=== PATIENT | male | born 1935 | race Caucasian/White ===

== ENCOUNTER 2020-01-20 07:38 | Outpatient (CLI) | payer MEDICARE, SELFPAY ==
[2020-01-20 07:55] LABS: Add Urine Microscopic? NO; Appearance Urine Clear (Clear); Bilirubin Urine Negative (Negative); Blood Urine Negative (Negative); Color Urine Yellow (Yellow); Glucose Urine UA Negative (Negative); Ketones Urine Negative (Negative); Leukocyte Esterase Ur Negative (Negative); Nitrate Urine Negative (Negative); Protein Urine Negative (Negative); Specific Grav Ur 1.015 (1.010-1.020); Urobilinogen Urine 0.2 mg/dL (0.2-1.0)
[2020-01-20 09:39] LABS: Alanine Aminotransferase 39 U/L (16-63); Albumin Level 3.7 g/dL (3.4-5.0); Alkaline Phosphatase 88 U/L (46-116); Anion Gap 13.3 mmol/L (7-16); Aspartate Amino Transferase 27 U/L (15-37); Bilirubin,Total 0.6 mg/dL (0.00-1.00); Blood Urea Nitrogen 15 mg/dL (7-18); Calcium 8.8 mg/dL (8.5-10.1); Carbon Dioxide 27 mmol/L (21-32); Chloride 107 mmol/L (98-108); Cholesterol 141 mg/dL (0-200); Creatine Kinase 176 U/L (39-308); Estimated Glomerular Filt Rate > 60; Glucose 89 mg/dL (70-99); HDL Direct 62 mg/dL (40-60); LDL Cholesterol Calculated 58 mg/dL (<130); Osmolality Calculated 295 mOsm/kg (285-295); Potassium 4.3 mmol/L (3.5-5.1); Sodium 143 mmol/L (136-145); Total Protein 6.1 g/dL (6.4-8.2); Triglycerides 103 mg/dL (0-150)
== END 2020-01-20 07:39 | disposition home or self-care (01) ==
LOC: CHSLAB 07:40
PROVIDERS: PCP Internal Medicine; Visit Provider Internal Medicine
DX: E78.2 Mixed hyperlipidemia (principal); I10 Essential (primary) hypertension; R73.01 Impaired fasting glucose
CPT/HCPCS: 36415; 80053; 80061; 81003; 82550

== ENCOUNTER 2020-07-28 07:17 | Outpatient (CLI) | payer MEDICARE, SELFPAY ==
[2020-07-28 07:33] LABS: Add Urine Microscopic? NO; Appearance Urine Clear (Clear); Bilirubin Urine Negative (Negative); Blood Urine Negative (Negative); Color Urine Yellow (Yellow); Glucose Urine UA Negative (Negative); Ketones Urine Negative (Negative); Leukocyte Esterase Ur Negative (Negative); Nitrate Urine Negative (Negative); Protein Urine Negative (Negative); Urobilinogen Urine 0.2 mg/dL (0.2-1.0); pH Urine 5.5 (5.0-8.0)
[2020-07-28 08:35] LABS: Alanine Aminotransferase 38 U/L (16-63); Alkaline Phosphatase 83 U/L (46-116); Anion Gap 8 mmol/L (8-16); Aspartate Amino Transferase 22 U/L (15-37); Bilirubin,Total 0.6 mg/dL (0.00-1.00); Blood Urea Nitrogen 19 mg/dL (7-18); Calcium 8.8 mg/dL (8.5-10.1); Carbon Dioxide 28 mmol/L (21-32); Chloride 104 mmol/L (98-108); Cholesterol 159 mg/dL (0-200); Creatine Kinase 234 U/L (39-308); Estimated Glomerular Filt Rate > 60; Glucose 92 mg/dL (70-99); HDL Direct 71 mg/dL (40-60); LDL Cholesterol Calculated 67 mg/dL (<130); Osmolality Calculated 292 mOsm/kg (285-295); Potassium 4.3 mmol/L (3.5-5.1); Sodium 140 mmol/L (136-145); Total Protein 6.7 g/dL (6.4-8.2); Triglycerides 107 mg/dL (0-150)
== END 2020-07-28 07:18 | disposition home or self-care (01) ==
LOC: CHSLAB 07:20
PROVIDERS: PCP Internal Medicine; Visit Provider Internal Medicine
DX: E78.2 Mixed hyperlipidemia (principal); I10 Essential (primary) hypertension
CPT/HCPCS: 36415; 80053; 80061; 81003; 82550

== ENCOUNTER 2020-11-25 13:33 | Outpatient (CLI) | payer MEDICARE, SELFPAY ==
--- NOTE | ~2020-11-25 | XR_ITS ---
EXAMINATION: XR knee RT min 4V DATE: 11/25/2020 14:04 INDICATION: Right knee pain. TECHNIQUE: 4 views of right knee were obtained. COMPARISON: Right knee radiographs 02/07/2018 FINDINGS: There is varus angulation at the knee. No fracture. There is severe osteoarthritis of media l and lateral compartments and moderate osteoarthritis of patellofemoral compartment. There is a smal l knee joint effusion with loose bodies. IMPRESSION: 1. Severe right knee osteoarthritis. 2. Small right knee joint effusion with loose bodies. Reviewed, dictated and finalized at location B.
--- NOTE | ~2020-11-25 | XR_ITS ---
EXAMINATION: XR knee LT min 4V DATE: 11/25/2020 14:04 INDICATION: Left knee pain. TECHNIQUE: 4 views of left knee were obtained. COMPARISON: Left knee radiographs 02/07/2018 FINDINGS: There is varus angulation at the knee. No fracture. There is severe osteoarthritis of media l compartment and moderate osteoarthritis of lateral and patellofemoral compartments. There is a smal l knee joint effusion with loose bodies. IMPRESSION: 1. Severe left knee osteoarthritis. 2. Small knee joint effusion with loose bodies. Reviewed, dictated and finalized at location B.
== END 2020-11-25 13:34 | disposition home or self-care (01) ==
LOC: CHSIMG 13:36
PROVIDERS: PCP Internal Medicine; Visit Provider Internal Medicine
DX: M25.562 Pain in left knee (principal); M25.561 Pain in right knee; M17.0 Bilateral primary osteoarthritis of knee
CPT/HCPCS: 73564

== ENCOUNTER 2020-12-16 13:32 | Outpatient (CLI) | payer MEDICARE, SELFPAY ==
--- NOTE | ~2020-12-16 | US_ITS ---
EXAMINATION: US carotid duplex BI DATE: 12/16/2020 16:09 INDICATION: Bilateral carotid stenosis. TECHNIQUE: Grayscale, color Doppler, and pulsed Doppler images of the cervical carotid arteries were obtained. The degree of vessel stenosis is placed in one of the following categories: normal, <50%, 5 0-69%, >=70% but less than near-occlusion, near-occlusion, or total occlusion. Note that percent sten osis relative to normal distal artery lumen diameter is indirectly measured from velocity measurement s as described by Gunnar, et al. Radiology 2003; [id number]:340-346. COMPARISON: Ultrasound 08/13/2019 FINDINGS: RIGHT: The right common carotid artery (CCA) peak systolic velocity (PSV) is 71 cm/s. The right internal car otid artery (ICA) PSV is 162 cm/s. The right ICA end-diastolic velocity (EDV) is 37 cm/s. The right I CA/CCA PSV ratio is 2.3. Grayscale and color Doppler images yield an estimate of >=50% diameter reduc tion from plaque in the ICA. There is antegrade flow in the right vertebral artery. LEFT: The left CCA PSV is 74 cm/s. The left ICA PSV is 66 cm/s. The left ICA EDV is 20 cm/s. The left ICA/C CA PSV ratio is 0.9. Grayscale and color Doppler images yield an estimate of <50% diameter reduction from plaque in the ICA. There is antegrade flow in the left vertebral artery. IMPRESSION: 1. 50-69% stenosis in the right internal carotid artery. 2. <50% stenosis in the left internal carotid artery. Reviewed, dictated and finalized at location A.
[2020-12-16 13:46] LABS: Basophils Absolute Auto 0.04 K/mm3 (0.00-0.10); Basophils Percent Auto 0.5 % (0.0-1.0); Eosinophils Absolute Auto 0.06 K/mm3 (0.02-0.50); Eosinophils Percent Auto 0.7 % (1.0-6.0); Hematocrit 45.9 % (37.0-46.0); Hemoglobin 15.5 g/dL (12.4-15.3); Immature Granulocyte Absolute 0.02 K/mm3 (0.00-0.00); Immature Granulocyte Percent A 0.2 % (0.0-0.0); Lymphocytes Absolute Auto 1.97 K/mm3 (1.10-4.50); Lymphocytes Percent Auto 22.2 % (18.0-42.0); Mean Corpuscular HGB Conc 33.8 g/dL (32.0-36.0); Mean Corpuscular Hemoglobin 33.3 pg (27.0-31.0); Mean Corpuscular Volume 98.7 fL (78.0-102.0); Mean Platelet Volume 9.6 fl (8.7-11.0); Monocytes Absolute Auto 0.93 K/mm3 (0.10-0.90); Monocytes Percent Auto 10.5 % (2.0-11.0); Neutrophils Absolute Auto 5.9 K/mm3 (1.7-7.2); Neutrophils Percent Auto 65.9 % (50.0-70.0); Platelet Count Result 213 K/mm3 (150-420); Red Blood Count 4.65 M/mm3 (4.70-6.10); Red Cell Distribution Width 12.8 % (11.6-14.4); White Blood Count 8.9 K/mm3 (4.8-10.8)
[2020-12-16 13:51] LABS: Add Urine Microscopic? NO; Appearance Urine Clear (Clear); Bilirubin Urine Negative (Negative); Blood Urine Negative (Negative); Color Urine Yellow (Yellow); Glucose Urine UA Negative (Negative); Ketones Urine Negative (Negative); Leukocyte Esterase Ur Negative LEU/UL (Negative); Nitrate Urine Negative (Negative); Protein Urine Negative (Negative); Specific Grav Ur 1.025 (1.010-1.020); Urobilinogen Urine 0.2 mg/dL (0.2-1.0); pH Urine 5.5 (5.0-8.0)
[2020-12-16 14:36] LABS: Alanine Aminotransferase 31 U/L (16-63); Albumin Level 3.6 g/dL (3.4-5.0); Alkaline Phosphatase 86 U/L (46-116); Anion Gap 11 mmol/L (8-16); Aspartate Amino Transferase 18 U/L (15-37); Bilirubin,Total 0.4 mg/dL (0.00-1.00); Blood Urea Nitrogen 18 mg/dL (7-18); Calcium 8.7 mg/dL (8.5-10.1); Carbon Dioxide 25 mmol/L (21-32); Chloride 106 mmol/L (98-108); Estimated Glomerular Filt Rate 60; Free T3 2.42 pg/mL (2.18-3.98); Free T4 Free Thyroxine 0.87 ng/dL (0.76-1.46); Glucose 135 mg/dL (70-99); Osmolality Calculated 297 mOsm/kg (285-295); Potassium 4.2 mmol/L (3.5-5.1); Sodium 142 mmol/L (136-145); Thyroid Stimulating Hormone 1.31 uIU/mL (0.36-3.74)
== END 2020-12-16 13:33 | disposition home or self-care (01) ==
PROVIDERS: PCP Internal Medicine; Visit Provider Internal Medicine
DX: I65.23 Occlusion and stenosis of bilateral carotid arteries (principal); R53.83 Other fatigue; R35.8 Other polyuria; R42 Dizziness and giddiness
CPT/HCPCS: 36415; 80053; 81003; 84439; 84443; 84481; 85025; 93880

== ENCOUNTER 2020-12-28 10:13 | Outpatient (CLI) | payer MEDICARE, SELFPAY ==
--- NOTE | ~2020-12-28 | US_ITS ---
EXAMINATION: US abdomen limited EXAM DATE: 12/28/2020 11:01 INDICATION: Ascites. Dyspnea, swelling all over body. TECHNIQUE: Multiple grayscale and Doppler images of the abdomen right upper quadrant were obtained (jaqueline y a technologist who performed the scan) and subsequently reviewed. There is no prior study for bettye ty. FINDINGS: Scanning in all 4 quadrants demonstrated no evidence of free abdominal fluid. IMPRESSION: No ascites. Reviewed, dictated and finalized at location B. IMPRESSION: No ascites.
--- NOTE | ~2020-12-28 | XR_ITS ---
XR chest 2V 12/28/2020 10:55 Indication: Dyspnea. Procedure: 2 view chest Comparison: 08/06/2014 Findings: Elevation of the right diaphragm. Right basilar atelectasis. Heart size normal. Left lung c lear. No pleural effusion, focal pneumonia, edema or pneumothorax. Impression: 1: Right basilar elevation with chronic elevation of the right diaphragm. Reviewed, dictated and finalized at location A. Impression: 1: Right basilar elevation with chronic elevation of the right diaphragm.
[2020-12-28 10:29] LABS: Basophils Absolute Auto 0.04 K/mm3 (0.00-0.10); Basophils Percent Auto 0.5 % (0.0-1.0); Eosinophils Absolute Auto 0.12 K/mm3 (0.02-0.50); Eosinophils Percent Auto 1.5 % (1.0-6.0); Hematocrit 47.6 % (37.0-46.0); Immature Granulocyte Absolute 0.03 K/mm3 (0.00-0.00); Immature Granulocyte Percent A 0.4 % (0.0-0.0); Lymphocytes Absolute Auto 1.66 K/mm3 (1.10-4.50); Lymphocytes Percent Auto 20.4 % (18.0-42.0); Mean Corpuscular HGB Conc 33.6 g/dL (32.0-36.0); Mean Corpuscular Hemoglobin 33.1 pg (27.0-31.0); Mean Corpuscular Volume 98.3 fL (78.0-102.0); Mean Platelet Volume 9.4 fl (8.7-11.0); Monocytes Absolute Auto 1.16 K/mm3 (0.10-0.90); Monocytes Percent Auto 14.3 % (2.0-11.0); Neutrophils Absolute Auto 5.1 K/mm3 (1.7-7.2); Neutrophils Percent Auto 62.9 % (50.0-70.0); Platelet Count Result 212 K/mm3 (150-420); Red Blood Count 4.84 M/mm3 (4.70-6.10); Red Cell Distribution Width 12.8 % (11.6-14.4); White Blood Count 8.1 K/mm3 (4.8-10.8)
[2020-12-28 10:48] LABS: Add Urine Microscopic? NO; Appearance Urine Clear (Clear); Bilirubin Urine Negative (Negative); Blood Urine Negative (Negative); Color Urine Yellow (Yellow); Glucose Urine UA Negative (Negative); Ketones Urine Negative (Negative); Leukocyte Esterase Ur Negative (Negative); Nitrate Urine Negative (Negative); Protein Urine Negative (Negative); Specific Grav Ur 1.025 (1.010-1.020); Urobilinogen Urine 0.2 mg/dL (0.2-1.0); pH Urine 5.5 (5.0-8.0)
[2020-12-28 10:51] LABS: Alanine Aminotransferase 25 U/L (16-63); Albumin Level 3.6 g/dL (3.4-5.0); Alkaline Phosphatase 86 U/L (46-116); Anion Gap 8 mmol/L (8-16); Aspartate Amino Transferase 19 U/L (15-37); Bilirubin,Total 0.7 mg/dL (0.00-1.00); Blood Urea Nitrogen 18 mg/dL (7-18); Calcium 8.6 mg/dL (8.5-10.1); Carbon Dioxide 27 mmol/L (21-32); Chloride 106 mmol/L (98-108); Estimated Glomerular Filt Rate > 60; Glucose 89 mg/dL (70-99); NT Pro B Type Natriuretic Pept 236 pg/mL (0-450); Osmolality Calculated 292 mOsm/kg (285-295); Potassium 4.4 mmol/L (3.5-5.1); Sodium 141 mmol/L (136-145); Total Protein 6.4 g/dL (6.4-8.2)
[2020-12-31 10:27] LABS: Prealbumin 24 mg/dL (21-43)
== END 2020-12-28 10:14 | disposition home or self-care (01) ==
PROVIDERS: PCP Internal Medicine; Visit Provider Internal Medicine
DX: R18.8 Other ascites (principal); R06.00 Dyspnea, unspecified
CPT/HCPCS: 36415; 71046; 76705; 80053; 81003; 83880; 84134; 85025

== ENCOUNTER 2021-01-07 07:24 | Outpatient (CLI) | payer MEDICARE, SELFPAY ==
[2021-01-07 08:58] LABS: Anion Gap 10 mmol/L (8-16); Blood Urea Nitrogen 20 mg/dL (7-18); Carbon Dioxide 27 mmol/L (21-32); Chloride 105 mmol/L (98-108); Estimated Glomerular Filt Rate > 60; Glucose 94 mg/dL (70-99); Osmolality Calculated 296 mOsm/kg (285-295); Potassium 4.2 mmol/L (3.5-5.1); Sodium 142 mmol/L (136-145)
== END 2021-01-07 07:25 | disposition home or self-care (01) ==
LOC: CHSLAB 07:25
PROVIDERS: PCP Internal Medicine; Visit Provider Internal Medicine
DX: I10 Essential (primary) hypertension (principal)
CPT/HCPCS: 36415; 80048

== ENCOUNTER 2021-02-01 07:34 | Outpatient (CLI) | payer MEDICARE, SELFPAY ==
[2021-02-01 09:02] LABS: Anion Gap 12 mmol/L (8-16); Blood Urea Nitrogen 27 mg/dL (7-18); Calcium 8.4 mg/dL (8.5-10.1); Carbon Dioxide 26 mmol/L (21-32); Chloride 109 mmol/L (98-108); Estimated Glomerular Filt Rate 56; Glucose 97 mg/dL (70-99); Osmolality Calculated 309 mOsm/kg (285-295); Potassium 4.6 mmol/L (3.5-5.1); Sodium 147 mmol/L (136-145)
== END 2021-02-01 07:35 | disposition home or self-care (01) ==
LOC: CHSLAB 07:36
PROVIDERS: PCP Internal Medicine; Visit Provider Internal Medicine
DX: I10 Essential (primary) hypertension (principal)
CPT/HCPCS: 36415; 80048

== ENCOUNTER 2021-07-16 11:18 | Outpatient (CLI) | payer MEDICARE, SELFPAY ==
[2021-07-16 12:23] LABS: Influenza Control Valid (Valid); SARS-CoV-2 Ag Negative (Negative)
== END 2021-07-16 11:19 | disposition home or self-care (01) ==
LOC: CHSLAB 11:20
PROVIDERS: PCP Internal Medicine; Visit Provider Internal Medicine
DX: J06.9 Acute upper respiratory infection, unspecified (principal); Z20.822 Contact with and (suspected) exposure to COVID-19
CPT/HCPCS: 87081; 87426; 87804; 87880; C9803

== ENCOUNTER 2021-08-10 07:52 | Outpatient (CLI) | payer MEDICARE, SELFPAY ==
[2021-08-10 08:12] LABS: Basophils Absolute Auto 0.01 K/mm3 (0.00-0.10); Basophils Percent Auto 0.2 % (0.0-1.0); Eosinophils Absolute Auto 0.08 K/mm3 (0.02-0.50); Eosinophils Percent Auto 1.2 % (1.0-6.0); Hematocrit 50.4 % (37.0-46.0); Hemoglobin 16.4 g/dL (12.4-15.3); Immature Granulocyte Absolute 0.04 K/mm3 (0.00-0.00); Immature Granulocyte Percent A 0.6 % (0.0-0.0); Lymphocytes Absolute Auto 1.72 K/mm3 (1.10-4.50); Lymphocytes Percent Auto 26.2 % (18.0-42.0); Mean Corpuscular HGB Conc 32.5 g/dL (32.0-36.0); Mean Corpuscular Hemoglobin 33.6 pg (27.0-31.0); Mean Corpuscular Volume 103.3 fL (78.0-102.0); Mean Platelet Volume 9.3 fl (8.7-11.0); Monocytes Absolute Auto 0.77 K/mm3 (0.10-0.90); Monocytes Percent Auto 11.7 % (2.0-11.0); Neutrophils Percent Auto 60.1 % (50.0-70.0); Platelet Count Result 169 K/mm3 (150-420); Red Blood Count 4.88 M/mm3 (4.70-6.10); Red Cell Distribution Width 13.1 % (11.6-14.4); White Blood Count 6.6 K/mm3 (4.8-10.8)
[2021-08-10 08:13] LABS: Add Urine Microscopic? NO; Appearance Urine Clear (Clear); Bilirubin Urine Negative (Negative); Blood Urine Negative (Negative); Color Urine Yellow (Yellow); Glucose Urine UA Negative (Negative); Ketones Urine Negative (Negative); Leukocyte Esterase Ur Negative (Negative); Nitrate Urine Negative (Negative); Protein Urine Negative (Negative); Specific Grav Ur 1.025 (1.010-1.020); Urobilinogen Urine 0.2 mg/dL (0.2-1.0)
[2021-08-10 09:18] LABS: Alanine Aminotransferase 82 U/L (16-63); Albumin Level 3.5 g/dL (3.4-5.0); Alkaline Phosphatase 92 U/L (46-116); Anion Gap 9 mmol/L (8-16); Aspartate Amino Transferase 38 U/L (15-37); Bilirubin,Total 0.4 mg/dL (0.00-1.00); Blood Urea Nitrogen 19 mg/dL (7-18); Calcium 8.4 mg/dL (8.5-10.1); Carbon Dioxide 29 mmol/L (21-32); Chloride 104 mmol/L (98-108); Cholesterol 156 mg/dL (0-200); Creatine Kinase 141 U/L (39-308); Estimated Glomerular Filt Rate > 60; Free T4 Free Thyroxine 0.96 ng/dL (0.76-1.46); Glucose 89 mg/dL (70-99); HDL Direct 57 mg/dL (40-60); LDL Cholesterol Calculated 72 mg/dL (<130); Osmolality Calculated 295 mOsm/kg (285-295); Potassium 4.3 mmol/L (3.5-5.1); Sodium 142 mmol/L (136-145); Total Protein 6.3 g/dL (6.4-8.2); Triglycerides 135 mg/dL (0-150)
== END 2021-08-10 07:53 | disposition home or self-care (01) ==
LOC: CHSLAB 07:54
PROVIDERS: PCP Internal Medicine; Visit Provider Internal Medicine
DX: E78.2 Mixed hyperlipidemia (principal); I10 Essential (primary) hypertension; M15.0 Primary generalized (osteo)arthritis; R53.82 Chronic fatigue, unspecified; I63.233 Cerebral infarction due to unspecified occlusion or stenosis of bilateral carotid arteries
CPT/HCPCS: 36415; 80053; 80061; 81003; 82550; 84439; 84443; 84481; 85025

== ENCOUNTER 2021-08-31 08:13 | Outpatient (CLI) | payer MEDICARE, SELFPAY ==
[2021-08-31 09:34] LABS: Alanine Aminotransferase 44 U/L (16-63); Albumin Level 3.7 g/dL (3.4-5.0); Alkaline Phosphatase 75 U/L (46-116); Anion Gap 9 mmol/L (8-16); Aspartate Amino Transferase 27 U/L (15-37); Bilirubin,Total 0.8 mg/dL (0.00-1.00); Blood Urea Nitrogen 19 mg/dL (7-18); Calcium 8.8 mg/dL (8.5-10.1); Carbon Dioxide 29 mmol/L (21-32); Chloride 104 mmol/L (98-108); Estimated Glomerular Filt Rate > 60; Glucose 92 mg/dL (70-99); Osmolality Calculated 296 mOsm/kg (285-295); Potassium 4.6 mmol/L (3.5-5.1); Sodium 142 mmol/L (136-145); Total Protein 6.5 g/dL (6.4-8.2)
== END 2021-08-31 08:14 | disposition home or self-care (01) ==
LOC: CHSLAB 08:15
PROVIDERS: PCP Internal Medicine; Visit Provider Internal Medicine
DX: R94.5 Abnormal results of liver function studies (principal)
CPT/HCPCS: 36415; 80053

== ENCOUNTER 2022-01-26 08:06 | Outpatient (CLI) | payer MEDICARE, SELFPAY ==
[2022-01-26 08:29] LABS: Basophils Absolute Auto 0.02 K/mm3 (0.00-0.10); Basophils Percent Auto 0.3 % (0.0-1.0); Eosinophils Absolute Auto 0.15 K/mm3 (0.02-0.50); Eosinophils Percent Auto 2.1 % (1.0-6.0); Hematocrit 47.3 % (37.0-46.0); Hemoglobin 15.8 g/dL (12.4-15.3); Immature Granulocyte Absolute 0.02 K/mm3 (0.00-0.00); Immature Granulocyte Percent A 0.3 % (0.0-0.0); Lymphocytes Absolute Auto 1.77 K/mm3 (1.10-4.50); Mean Corpuscular HGB Conc 33.4 g/dL (32.0-36.0); Mean Corpuscular Hemoglobin 33.5 pg (27.0-31.0); Mean Corpuscular Volume 100.4 fL (78.0-102.0); Mean Platelet Volume 9.4 fl (8.7-11.0); Monocytes Absolute Auto 0.86 K/mm3 (0.10-0.90); Monocytes Percent Auto 12.2 % (2.0-11.0); Neutrophils Absolute Auto 4.3 K/mm3 (1.7-7.2); Neutrophils Percent Auto 60.1 % (50.0-70.0); Platelet Count Result 224 K/mm3 (150-420); Red Blood Count 4.71 M/mm3 (4.70-6.10); Red Cell Distribution Width 12.9 % (11.6-14.4); White Blood Count 7.1 K/mm3 (4.8-10.8)
[2022-01-26 08:45] LABS: Add Urine Microscopic? NO; Appearance Urine Clear (Clear); Bilirubin Urine Negative (Negative); Blood Urine Negative (Negative); Color Urine Yellow (Yellow); Glucose Urine UA Negative (Negative); Ketones Urine Negative (Negative); Leukocyte Esterase Ur Negative (Negative); Nitrate Urine Negative (Negative); Protein Urine Negative (Negative); Specific Grav Ur 1.025 (1.010-1.020); Urobilinogen Urine 0.2 mg/dL (0.2-1.0)
[2022-01-26 09:11] LABS: Alanine Aminotransferase 33 U/L (16-63); Albumin Level 3.6 g/dL (3.4-5.0); Alkaline Phosphatase 84 U/L (46-116); Anion Gap 7 mmol/L (8-16); Aspartate Amino Transferase 23 U/L (15-37); Bilirubin,Total 0.8 mg/dL (0.00-1.00); Blood Urea Nitrogen 20 mg/dL (7-18); Calcium 8.8 mg/dL (8.5-10.1); Carbon Dioxide 28 mmol/L (21-32); Chloride 109 mmol/L (98-108); Cholesterol 160 mg/dL (0-200); Creatine Kinase 235 U/L (39-308); Estimated Glomerular Filt Rate 57; Free T3 2.37 pg/mL (2.18-3.98); Free T4 Free Thyroxine 0.89 ng/dL (0.76-1.46); Glucose 103 mg/dL (70-99); HDL Direct 60 mg/dL (40-60); LDL Cholesterol Calculated 72 mg/dL (<130); Osmolality Calculated 300 mOsm/kg (285-295); Potassium 4.4 mmol/L (3.5-5.1); Sodium 144 mmol/L (136-145); Thyroid Stimulating Hormone 2.05 uIU/mL (0.36-3.74); Total Protein 6.5 g/dL (6.4-8.2); Triglycerides 138 mg/dL (0-150)
== END 2022-01-26 08:07 | disposition home or self-care (01) ==
LOC: CHSLAB 08:08
PROVIDERS: PCP Internal Medicine; Visit Provider Internal Medicine
DX: E78.2 Mixed hyperlipidemia (principal); I10 Essential (primary) hypertension; R74.8 Abnormal levels of other serum enzymes; R53.82 Chronic fatigue, unspecified; R21 Rash and other nonspecific skin eruption; I63.233 Cerebral infarction due to unspecified occlusion or stenosis of bilateral carotid arteries
CPT/HCPCS: 36415; 80053; 80061; 81003; 82550; 84439; 84443; 84481; 85025

== ENCOUNTER 2022-02-22 08:24 | Outpatient (CLI) | payer MEDICARE, SELFPAY ==
--- NOTE | ~2022-02-22 | US_ITS ---
EXAMINATION: US carotid duplex BI DATE: 02/22/2022 09:14 INDICATION: Carotid stenosis TECHNIQUE: Grayscale, color Doppler, and pulsed Doppler images of the cervical carotid arteries were obtained. The degree of vessel stenosis is placed in one of the following categories: normal, <50%, 5 0-69%, >=70% but less than near-occlusion, near-occlusion, or total occlusion. Note that percent sten osis relative to normal distal artery lumen diameter is indirectly measured from velocity measurement s as described by Gunnar, et al. Radiology 2003; [id number]. Notes: Normal: Peak systolic velocity <125 centimeters/sec and no plaque <50%. Peak systolic velocity <125 ( EDV <40; ICA/CCA PSV ratio <2.0; used these factors only a tandem lesions or low cardiac output or co ntralateral disease) 50-69 %: PSV 125-230 (EDV 40-100; ratio 2-4) >= 70% but less than near occlusion: PSV greater than 230 (EDV > 100; ratio> 4.0) Near Occlusion: PSV that is variable; markedly narrowed lumen Occlusion: Absent flow on color/spectral Doppler and no lumen on funes scale. COMPARISON: None. FINDINGS: RIGHT: The right common carotid artery (CCA) peak systolic velocity (PSV) is 57 cm/s. The right internal car otid artery (ICA) PSV is 152 cm/s. The right ICA end-diastolic velocity (EDV) is 27 cm/s. The right I CA/CCA PSV ratio is 2.6. The external carotid artery (ECA) PSV is 110 cm/s. There is antegrade flow i n the right vertebral artery. LEFT: The left CCA PSV is 54 cm/s. The left ICA PSV is 34 cm/s. The left ICA EDV is 10 cm/s. The left ICA/C CA PSV ratio is 0.6. The ECA PSV is 130 cm/s. There is antegrade flow in the left vertebral artery. IMPRESSION: 1. 50-69% stenosis in the right internal carotid artery by sonographic criteria. 2. Less than 50% stenosis in the left internal carotid artery by sonographic criteria. Reviewed, dictated and finalized at location A. IMPRESSION: 1. 50-69% stenosis in the right internal carotid artery by sonographic criteria . 2. Less than 50% stenosis in the left internal carotid artery by sonographic cr iteria.
== END 2022-02-22 08:25 | disposition home or self-care (01) ==
LOC: CHSIMG 08:26
PROVIDERS: PCP Internal Medicine; Visit Provider Internal Medicine
DX: I65.23 Occlusion and stenosis of bilateral carotid arteries (principal)
CPT/HCPCS: 93880

== ENCOUNTER 2022-03-08 10:54 | Emergency (ER) | payer MEDICARE, SELFPAY ==
[2022-03-08 10:57] VITALS: BP 154/63; PULSE 106; RESP 16; TEMP 37; O2SAT 95
--- NOTE | 2022-03-08 11:04 | ED.URI ---
HPI - URI/Sore Throat General Chief Complaint: Upper Respiratory Infection Stated Complaint: COUGH, SORE THROAT, DIARRHEA Time Seen by Provider: 03/08/22 11:04 Source: patient Limitations: no limitations History of Present Illness HPI Narrative: 86-year-old male with a history of hypertension, dyslipidemia, CVA presents to the ER with with a 2 day history of -- sore throat which has improved -- nasal congestion with rhinorrhea -- diarrhea. no nausea/vomiting /abdominal pain. The patient was constipated for which he took a laxative. No fever or chills. MD elicited complaint: sore throat, rhinorrhea and nasal congestion Onset (ago): day(s) ( Started 2 days ago) Consistency: constant Severity: mild Description of mucous: clear Able to tolerate fluids by mouth: Yes Exacerbating factors: nothing Relieving factors: nothing Context: sick contacts Related Data Home Medications Medication Instructions Recorded Confirmed amlodipine 5 mg tablet 5 mg PO DAILY 03/08/22 03/08/22 atorvastatin 40 mg tablet 40 mg PO DAILY 03/08/22 03/08/22 clopidogrel 75 mg tablet 75 mg PO DAILY 03/08/22 03/08/22 losartan 50 mg-hydrochlorothiazide 1 tablet PO DAILY 03/08/22 03/08/22 12.5 mg tablet Allergies Allergy/AdvReac Type Severity Reaction Status Date / Time Penicillins Allergy Unknown HIVES Verified 03/08/22 11:06 Review of Systems Review of Systems: All systems reviewed & are unremarkable except as noted in HPI and below Constitutional: Constitutional: Reports as per HPI and Reports no additional constitutional complaints Eyes: Eyes: Reports as per HPI and Reports no additional eye complaints ENT: Reports system reviewed and no additional complaints, except as documented, Reports as per HPI, Reports nasal congestion, Reports nasal discharge and Reports sore throat Cardiovascular: Cardiovascular: Reports as per HPI and Reports no additional cardiovascular complaints Respiratory: Respiratory: Reports as per HPI and Reports no additional respiratory complaints Gastrointestinal: Gastrointestinal: Reports as per HPI, Reports no additional gastrointestinal complaints and Reports diarrhea Genitourinary: Genitourinary: Reports no additional male genitourinary complaints and Reports as per HPI Musculoskeletal: Musculoskeletal: Reports no additional musculoskeletal complaints and Reports as per HPI Integumentary/Breasts: Skin/Breast: Reports system reviewed and no additional complaints, except as docu, Reports as per HPI and Reports unusual bruising Neurologic: Reports system reviewed and no additional complaints, except as documented and Reports as per HPI Psychiatric: Psychiatric: Reports no additional psychiatric complaints and Reports as per HPI Endocrine: Endocrine: Reports no additional endocrine complaints and Reports as per HPI Hematologic/Lymphatic: Hematologic/Lymphatic: Reports no additional hematologic/lymphatic complaints and Reports as per HPI [facility] Past Medical History Medical History (Updated 03/08/22 @ 12:14 by Dain Gruber MD) CVA (cerebral vascular accident) Dyslipidemia Hypertension Exam Const: General: cooperative and healthy appearing HENMT: Head: normal to inspection Ears: hearing grossly normal bilaterally, external ears normal and TM's normal bilaterally General nose exam: Normal external nose present Face and sinus: normal facial exam, sinuses nontender and face symmetric Mouth: Yes Normal oral and palatal mucosa present, Yes lip normal, Yes tongue normal and Yes oropharynx normal ( pharyngeal erythema with enlarged uvula) Throat: posterior oropharynx normal ( pharyngeal erythema) Eyes: General: appearance normal, both eyes and all related structures Visual Starkey: normal visual starkey by confrontation Alignment and Position: alignment normal Neck: Neck: normal visual inspection, full ROM, no lymphadenopathy, no meningeal signs and trachea midline Thyroid: thyroid normal Chest: Chest p
[2022-03-08 11:32] LABS: Basophils Absolute Auto 0.03 K/mm3 (0.00-0.10); Basophils Percent Auto 0.2 % (0.0-1.0); Eosinophils Absolute Auto 0.08 K/mm3 (0.02-0.50); Eosinophils Percent Auto 0.6 % (1.0-6.0); Hematocrit 48.9 % (37.0-46.0); Hemoglobin 16.2 g/dL (12.4-15.3); Immature Granulocyte Absolute 0.05 K/mm3 (0.00-0.00); Immature Granulocyte Percent A 0.4 % (0.0-0.0); Lymphocytes Absolute Auto 0.72 K/mm3 (1.10-4.50); Lymphocytes Percent Auto 5.1 % (18.0-42.0); Mean Corpuscular HGB Conc 33.1 g/dL (32.0-36.0); Mean Corpuscular Hemoglobin 33.2 pg (27.0-31.0); Mean Corpuscular Volume 100.2 fL (78.0-102.0); Mean Platelet Volume 9.4 fl (8.7-11.0); Monocytes Absolute Auto 1.35 K/mm3 (0.10-0.90); Monocytes Percent Auto 9.6 % (2.0-11.0); Neutrophils Absolute Auto 11.8 K/mm3 (1.7-7.2); Neutrophils Percent Auto 84.1 % (50.0-70.0); Platelet Count Result 210 K/mm3 (150-420); Red Blood Count 4.88 M/mm3 (4.70-6.10); Red Cell Distribution Width 13.4 % (11.6-14.4)
[2022-03-08 11:37] VITALS: BP 114/74; PULSE 90; RESP 18; O2SAT 94
--- NOTE | 2022-03-08 11:38 | PC.NURSE ---
WATER PROVIDED TO PT. PT DENIES ANY OTHER NEEDS OR COMPLAINTS. PT IS AWAITING RESULTS AT THIS TIME. NAD NOTED. WILL CONTINUE TO MONITOR.
[2022-03-08 11:53] LABS: Alanine Aminotransferase 26 U/L (16-63); Albumin Level 3.7 g/dL (3.4-5.0); Alkaline Phosphatase 88 U/L (46-116); Anion Gap 8 mmol/L (8-16); Aspartate Amino Transferase 19 U/L (15-37); Bilirubin,Total 0.8 mg/dL (0.00-1.00); Blood Urea Nitrogen 19 mg/dL (7-18); Calcium 8.7 mg/dL (8.5-10.1); Carbon Dioxide 26 mmol/L (21-32); Chloride 105 mmol/L (98-108); Estimated CRCL calculation 49 ml/min; Estimated Glomerular Filt Rate 54; Glucose 139 mg/dL (70-99); Osmolality Calculated 292 mOsm/kg (285-295); Sodium 139 mmol/L (136-145); Total Protein 6.6 g/dL (6.4-8.2)
[2022-03-08 12:05] LABS: Influenza A QL RT-PCR Negative (Negative); Influenza B QL RT-PCR Negative (Negative); SARS-CoV-2 RNA PCR Negative (Negative)
[2022-03-08 12:25] VITALS: PULSE 88; RESP 18; O2SAT 96
== END 2022-03-08 12:25 | disposition home or self-care (01) ==
PROVIDERS: Emergency Provider Internal Medicine Critical Care Medicine; PCP Internal Medicine
DX: J06.9 Acute upper respiratory infection, unspecified (principal); Z20.822 Contact with and (suspected) exposure to COVID-19; Z86.73 Personal history of transient ischemic attack (TIA), and cerebral infarction without residual deficits
CPT/HCPCS: 36415; 80053; 84484; 85025; 87502; 99284; C9803; U0003; U0005

== ENCOUNTER 2022-03-17 19:55 | Outpatient (CLI) | payer MEDICARE, SELFPAY ==
--- NOTE | 2022-04-11 09:39 | WPDSLEEPSTUD ---
Sleep Study Date of Study: 03/17/22 Ordering Provider: Melva Parham MD Interpreting Physician: Helga Barr MD Sleep Study Type: Polysomnogram Height: 1.8 m Weight: 112.491 kg Body Mass Index: 34.5 Neck Circumference (inches): 18 [place]: 9 Reason for Sleep Study Witnessed apnea Sleep History Maurizio Junior is an 86-year-old man with witnessed apneas according to his . He always snores. He denies gasping for breath at night, sweating excessively at night, Palpitations during the n. He denies falling asleep during the day, falling asleep involuntarily or falling asleep while driving. He does not have loss of muscle tone with strong emotion. He does not have daytime difficulties due to excessive sleepiness. He does not feel paralyzed on waking or falling asleep nor does he have vivid dreamlike scenes upon awakening or falling asleep. He does not feel afraid to go to sleep. He denies nightmares. He denies feeling sad depressed or anxious. He does not have muscular tension. He does not notice parts of his body jerking. He does not have crawling or aching feelings in his legs. He occasionally has leg cramps at night. No morning jaw pain. He does not grind his teeth at night, does not have pain during the day and is not awakened by pain at night. He does not wake up feeling stiff in the morning, no sore achy muscles are pain in the neck and spine. Normal bedtime 10:30-11 p.m. waking 2-3 times at night to go to the bathroom, and he returns to sleep quickly. He wakes in the morning between 6 and 7:00 a.m.. He s takes naps in the afternoon. A short nap lasting 10 or 15 minutes may be refreshing. He always has a morning headache. He never has heartburn at night. Habits: Quit tobacco 62 years ago. Caffeine: He drinks green tea with lunch and dinner. Alcohol once per day. No recreational drugs. [facility] Past Medical History Medical History (Updated 04/11/22 @ 09:57 by Helga Barr MD) CVA (cerebral vascular accident) Dyslipidemia Hypertension Social History Social History (Updated 04/11/22 @ 09:45 by Helga Barr MD) Smoking status: Former smoker Substance use: never Medications Home Medications Medication Instructions Recorded Confirmed Type amlodipine 5 mg tablet 5 mg PO DAILY 03/08/22 03/08/22 History atorvastatin 40 mg tablet 40 mg PO DAILY 03/08/22 03/08/22 History clopidogrel 75 mg tablet 75 mg PO DAILY 03/08/22 03/08/22 History losartan 50 mg-hydrochlorothiazide 1 tablet PO DAILY 03/08/22 03/08/22 History 12.5 mg tablet Sleep Procedure This test was performed using the [employer] multiple channel system including EOG, EEG, submental EMG, EKG, nasal and oral airflow using thermistors and nasal pressure sensors, chest and abdominal belts for body position data, and pulse oximetry. Video monitoring was also performed. The study was scored using CMS guidelines. Sleep Architecture The recording time is 377.1 minutes. The total sleep time is 169.5 minutes. The sleep efficiency is 44.9%. The sleep latency is 18.9 minutes,. The REM latency is 345.5 minutes. The patient had 188.5 minutes of wakefulness after sleep onset. Sleep architecture showed 52.2% stage I sleep, 47.5% stage II sleep, no stage III sleep and 0.3% stage REM, just a half of one minute. Respiratory Analysis In supine REM there was 1 hypopnea. There were no events in nonsupine REM. In supine non-REM there were 11 obstructive apneas and 114 hypopneas for an index of 44.4. The total apnea-hypopnea index was 44.6 and it was all in the supine position. Arousals There were 240 arousals for an index of 85. There were 142 respiratory arousals for an index of 50.3, 2 isolated limb movements causing arousals for an index of 0.7, and 96 spontaneous arousals for an index of 34. Periodic Limb Movements There were no periodic limb movements. Oximetry Data The lowest saturation was 82%, mean saturatio
[2022-04-11 09:59] VITALS: BMI 34.5
== END 2022-03-18 19:42 | disposition home or self-care (01) ==
PROVIDERS: PCP Internal Medicine; Visit Provider Internal Medicine
DX: G47.33 Obstructive sleep apnea (adult) (pediatric) (principal)
CPT/HCPCS: 95810

== ENCOUNTER 2022-03-25 08:17 | Outpatient (CLI) | payer MEDICARE, SELFPAY ==
--- NOTE | ~2022-03-25 | XR_ITS ---
EXAMINATION: XR chest 2V DATE: 03/25/2022 08:41 INDICATION: Shortness of breath and congestion TECHNIQUE: PA and lateral views of the chest are obtained. COMPARISON: 12/28/2020 FINDINGS: There is mild chronic elevation of the right hemidiaphragm with associated right basilar at electasis. No pleural effusion or pneumothorax. The cardiomediastinal silhouette is normal. There are bridging osteophytes at multiple levels in the spine, consistent with diffuse idiopathic skeletal hy perostosis (DISH). IMPRESSION: 1. No acute cardiopulmonary abnormality. Reviewed, dictated and finalized at location B.
== END 2022-03-25 08:18 | disposition home or self-care (01) ==
LOC: CHSIMG 08:19
PROVIDERS: PCP Internal Medicine; Visit Provider Nurse Practitioner Family
DX: J06.9 Acute upper respiratory infection, unspecified (principal)
CPT/HCPCS: 71046

== ENCOUNTER 2022-06-02 10:01 | Outpatient (CLI) | payer MEDICARE, SELFPAY | END 2022-06-02 10:02 | disposition home or self-care (01) | PROVIDERS: PCP Internal Medicine; Visit Provider Specialist | DX: C44.629 Squamous cell carcinoma of skin of left upper limb, including shoulder (principal) | CPT/HCPCS: 88305 ==

== ENCOUNTER 2022-08-22 07:57 | Outpatient (CLI) | payer MEDICARE, SELFPAY ==
[2022-08-22 08:18] LABS: Basophils Absolute Auto 0.04 K/mm3 (0.00-0.10); Basophils Percent Auto 0.6 % (0.0-1.0); Eosinophils Absolute Auto 0.21 K/mm3 (0.02-0.50); Eosinophils Percent Auto 3.1 % (1.0-6.0); Hematocrit 48.9 % (37.0-46.0); Hemoglobin 15.9 g/dL (12.4-15.3); Immature Granulocyte Absolute 0.02 K/mm3 (0.00-0.00); Immature Granulocyte Percent A 0.3 % (0.0-0.0); Lymphocytes Absolute Auto 1.89 K/mm3 (1.10-4.50); Lymphocytes Percent Auto 27.8 % (18.0-42.0); Mean Corpuscular HGB Conc 32.5 g/dL (32.0-36.0); Mean Corpuscular Hemoglobin 32.3 pg (27.0-31.0); Mean Corpuscular Volume 99.4 fL (78.0-102.0); Mean Platelet Volume 9.4 fl (8.7-11.0); Monocytes Absolute Auto 0.74 K/mm3 (0.10-0.90); Monocytes Percent Auto 10.9 % (2.0-11.0); Neutrophils Absolute Auto 3.9 K/mm3 (1.7-7.2); Neutrophils Percent Auto 57.3 % (50.0-70.0); Platelet Count Result 191 K/mm3 (150-420); Red Blood Count 4.92 M/mm3 (4.70-6.10); White Blood Count 6.8 K/mm3 (4.8-10.8)
[2022-08-22 08:27] LABS: Hemoglobin A1C 5.7 % (<5.7)
[2022-08-22 08:37] LABS: Add Urine Microscopic? NO; Appearance Urine Clear (Clear); Bilirubin Urine Negative (Negative); Blood Urine Negative (Negative); Color Urine Light Yellow (Yellow); Glucose Urine UA Negative (Negative); Ketones Urine Negative (Negative); Leukocyte Esterase Ur Negative (Negative); Nitrate Urine Negative (Negative); Protein Urine Negative (Negative); Specific Grav Ur 1.025 (1.010-1.020); Urobilinogen Urine 0.2 mg/dL (0.2-1.0)
[2022-08-22 09:02] LABS: Alanine Aminotransferase 24 U/L (16-63); Albumin Level 3.6 g/dL (3.4-5.0); Alkaline Phosphatase 83 U/L (46-116); Anion Gap 5 mmol/L (8-16); Aspartate Amino Transferase 16 U/L (15-37); Bilirubin,Total 0.6 mg/dL (0.00-1.00); Blood Urea Nitrogen 18 mg/dL (7-18); Calcium 8.7 mg/dL (8.5-10.1); Carbon Dioxide 30 mmol/L (21-32); Chloride 110 mmol/L (98-108); Cholesterol 158 mg/dL (0-200); Creatine Kinase 119 U/L (39-308); Estimated Glomerular Filt Rate 59; Free T3 2.44 pg/mL (2.18-3.98); Free T4 Free Thyroxine 0.86 ng/dL (0.76-1.46); Glucose 101 mg/dL (70-99); HDL Direct 59 mg/dL (40-60); LDL Cholesterol Calculated 72 mg/dL (<130); Osmolality Calculated 301 mOsm/kg (285-295); Potassium 4.3 mmol/L (3.5-5.1); Sodium 145 mmol/L (136-145); Thyroid Stimulating Hormone 1.98 uIU/mL (0.36-3.74); Total Protein 6.2 g/dL (6.4-8.2); Triglycerides 136 mg/dL (0-150)
== END 2022-08-22 07:58 | disposition home or self-care (01) ==
LOC: CHSLAB 07:59
PROVIDERS: PCP Internal Medicine; Visit Provider Internal Medicine
DX: R73.01 Impaired fasting glucose (principal); E78.2 Mixed hyperlipidemia; R53.82 Chronic fatigue, unspecified; I10 Essential (primary) hypertension
CPT/HCPCS: 36415; 80053; 80061; 81003; 82550; 83036; 84439; 84443; 84481; 85025

== ENCOUNTER 2022-08-30 10:47 | Outpatient (CLI) | payer MEDICARE, SELFPAY ==
--- NOTE | ~2022-08-30 | XR_ITS ---
EXAMINATION: XR chest 2V Exam Date/Time: 08/30/2022 10:55 SUPERVISOR CORRESPONDENCE SECTION HISTORY: cough with sinus issues x 1 week Comparison: None available. RESULT: Lines, tubes, and devices: None. Lungs and pleura: Increasing right basilar opacification, overlying stable bibasilar streaky linear opacities. Blunting of the right lateral costophrenic angle. Cardiomediastinal silhouette: Stable. Other: No acute osseous or upper abdominal finding. IMPRESSION: Worsening right basilar atelectasis/consolidation. Chronic right pleural parenchymal scarring. Reviewed, dictated and finalized at location K. RVISOR CORRESPONDENCE SECTION IMPRESSION: Worsening right basilar atelectasis/consolidation. Chronic right pleural parenc hymal scarring.
== END 2022-08-30 10:48 | disposition home or self-care (01) ==
LOC: CHSIMG 10:49
PROVIDERS: PCP Internal Medicine; Visit Provider Internal Medicine
DX: R05.9 Cough, unspecified (principal); R91.8 Other nonspecific abnormal finding of lung field
CPT/HCPCS: 71046

== ENCOUNTER 2022-09-02 07:25 | Outpatient (CLI) | payer MEDICARE, SELFPAY | END 2022-09-02 07:26 | disposition home or self-care (01) | PROVIDERS: PCP Internal Medicine; Visit Provider Internal Medicine | DX: R91.8 Other nonspecific abnormal finding of lung field (principal); R05.9 Cough, unspecified | CPT/HCPCS: 99199 ==

== ENCOUNTER 2022-09-05 07:13 | Outpatient (CLI) | payer MEDICARE, SELFPAY ==
--- NOTE | ~2022-09-05 | CT_ITS ---
EXAMINATION: CT diagnostic chest w con DATE: 09/05/2022 08:20 INDICATION: Abnormal chest x-ray. Cough. TECHNIQUE: Computed tomography (CT) of the chest was performed without intravenous contrast. The dose -length product was 559.18 mGy-cm. Automated exposure control and iterative reconstruction technique were employed. COMPARISON: Chest x-ray dated 08/30/2022 FINDINGS: Heart size is normal. No significant pleural or pericardial effusion. No thoracic lymphaden opathy. There is atherosclerosis of the aorta and coronary arteries. There is a 9 cm exophytic left r enal cyst. There is eventration of the diaphragm with extension of the liver into the right lower tho racic cavity.. There is a 3 mm left upper lobe nodule adjacent to the fissure. There is a 3 mm fissur al nodule on the left, image 87. IMPRESSION: 1. 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 2: Left upper and lower lobe nodules measuring 3 mm, likely benign. Consider follow-up low dose CT est in 12 months. Reviewed, dictated and finalized at location B. HARDENER IMPRESSION: 1. Chronic eventration of the right diaphragm with adjacent compressive atelect asis. 2: Left upper and lower lobe nodules measuring 3 mm, likely benign. Consider fo llow-up low dose CT chest in 12 months.
== END 2022-09-05 07:14 | disposition home or self-care (01) ==
LOC: CHSIMG 07:14
PROVIDERS: PCP Internal Medicine; Visit Provider Internal Medicine
DX: R05.9 Cough, unspecified (principal); R91.8 Other nonspecific abnormal finding of lung field
CPT/HCPCS: 71260; Q9967

== ENCOUNTER 2022-11-28 10:40 | Outpatient (RCR) | payer MEDICARE, SELFPAY ==
--- NOTE | 2022-11-28 11:08 | PTOPEVAL1 ---
Assessment and note entered by Papa Rascon Evaluation Information Assessment Status Evaluation Diagnosis bilateral knee pain Onset 11/23/22 Subjective Information Pt. reports that he has had on/off knee pain for years. He reports that he is unable to have knee replacement due to his medical hx. He reports that he had been doing therapy for a couple of months, but the therapist had moved out of the area. He states that his pain is increased with standing. He describes pain in the inside of the knees. He reports that he can only walk for about 15 minute before having to sit down due to pain. He reports that he has noticed a steady decline in his ability to stand over the recent months. He reports that his goal is to be able to stand longer and decrease his pain. Reported Pain Level Pain Score 8: Self Report Assessment PT Clinical Summary Pt. is an 86 year old male who enters the clinic due to bilateral knee pain. He presents with decreased ROM, impaired postural awareness, high fall risk, impaired gait and pain on this date. Continued skilled PT is indicated in order to improve these areas to allow the pt. to be able to complete all IADL's with improved comfort and safety. Plan of Care Interventions Electrical Stimulation,Gait Training,Hot Pack/Cold Pack,Manual Therapy,Neuro Re-education,Patient/ Caregiver Educati,Therapeutic Activities, Therapeutic Exercise,Self-Care/Home Management PT Services Indicated Yes Treatment Frequency and 2x/week x 10 visits Duration These treatments will address the objective and functional deficits as defined above. The patient will be advanced safely and appropriately in order for the patient to progress towards his/her prior level of function. Additional exercises will be introduced and as well as a comprehensive home exercise program upon discharge, if needed, ?to ensure carryover of functional gains achieved in the clinic. This treatment plan has been reviewed and agreement upon by the patient.
--- NOTE | 2023-01-04 10:14 | PTOPDC ---
Assessment and note entered by JT File, PT Evaluation Information Assessment Status Discharge Diagnosis bilateral knee pain Onset 11/23/22 Subjective Information patient reports he is doing very well. he reports he has achieved all goals he has set out to achieve for himself. Reported Pain Level Pain Score 4: Self Report Pain Score 5: Self Report Assessment PT Clinical Summary mr. hyatt presents to skilled PT for his 10th skilled therapy visit. as of this date, he has made progress in strength, balance, and ambulation /endurance. he has met roughly half of goals for skilled PT, but reports he has met all goals he set for himself. he will DC skilled PT today, and continue with HEP independent at home. Plan of Care PT Services Indicated Yes
== END 2023-01-04 13:58 | disposition home or self-care (01) ==
LOC: CHSPT 10:40
PROVIDERS: PCP Internal Medicine; Visit Provider Internal Medicine
DX: M25.561 Pain in right knee (principal); M25.562 Pain in left knee
CPT/HCPCS: 97014; 97110; 97161; G0283

== ENCOUNTER 2023-02-16 07:39 | Outpatient (CLI) | payer MEDICARE, SELFPAY ==
[2023-02-16 07:54] LABS: Basophils Absolute Auto 0.04 K/mm3 (0.00-0.10); Basophils Percent Auto 0.6 % (0.0-1.0); Eosinophils Absolute Auto 0.24 K/mm3 (0.02-0.50); Eosinophils Percent Auto 3.6 % (1.0-6.0); Hematocrit 47.4 % (37.0-46.0); Immature Granulocyte Absolute 0.01 K/mm3 (0.00-0.00); Immature Granulocyte Percent A 0.1 % (0.0-0.0); Lymphocytes Absolute Auto 1.97 K/mm3 (1.10-4.50); Lymphocytes Percent Auto 29.2 % (18.0-42.0); Mean Corpuscular HGB Conc 33.8 g/dL (32.0-36.0); Mean Corpuscular Hemoglobin 33.3 pg (27.0-31.0); Mean Corpuscular Volume 98.5 fL (78.0-102.0); Mean Platelet Volume 9.2 fl (8.7-11.0); Monocytes Absolute Auto 0.75 K/mm3 (0.10-0.90); Monocytes Percent Auto 11.1 % (2.0-11.0); Neutrophils Absolute Auto 3.7 K/mm3 (1.7-7.2); Neutrophils Percent Auto 55.4 % (50.0-70.0); Platelet Count Result 210 K/mm3 (150-420); Red Blood Count 4.81 M/mm3 (4.70-6.10); Red Cell Distribution Width 12.9 % (11.6-14.4); White Blood Count 6.7 K/mm3 (4.8-10.8)
[2023-02-16 07:57] LABS: Appearance Urine Clear (Clear); Bilirubin Urine Negative (Negative); Blood Urine Negative (Negative); Color Urine Yellow (Yellow); Glucose Urine UA Negative (Negative); Ketones Urine Negative (Negative); Leukocyte Esterase Ur Negative (Negative); Nitrate Urine Negative (Negative); Protein Urine Negative (Negative); Specific Grav Ur 1.025 (1.010-1.020); Urobilinogen Urine 0.2 mg/dL (0.2-1.0)
[2023-02-16 08:09] LABS: Add Urine Microscopic? NO
[2023-02-16 08:16] LABS: Hemoglobin A1C 5.7 % (<5.7)
[2023-02-16 08:26] LABS: Alanine Aminotransferase 33 U/L (16-63); Albumin Level 3.6 g/dL (3.4-5.0); Alkaline Phosphatase 90 U/L (46-116); Anion Gap 7 mmol/L (8-16); Aspartate Amino Transferase 17 U/L (15-37); Bilirubin,Total 0.7 mg/dL (0.00-1.00); Blood Urea Nitrogen 17 mg/dL (7-18); Calcium 8.8 mg/dL (8.5-10.1); Carbon Dioxide 30 mmol/L (21-32); Chloride 110 mmol/L (98-108); Cholesterol 136 mg/dL (0-200); Creatine Kinase 122 U/L (39-308); Estimated Glomerular Filt Rate > 60; Glucose 96 mg/dL (70-99); HDL Direct 56 mg/dL (40-60); LDL Cholesterol Calculated 63 mg/dL (<130); Osmolality Calculated 305 mOsm/kg (285-295); Potassium 4.1 mmol/L (3.5-5.1); Sodium 147 mmol/L (136-145); Triglycerides 86 mg/dL (0-150)
== END 2023-02-16 07:40 | disposition home or self-care (01) ==
LOC: CHSLAB 07:41
PROVIDERS: PCP Internal Medicine; Visit Provider Internal Medicine
DX: E78.2 Mixed hyperlipidemia (principal); I10 Essential (primary) hypertension; R73.01 Impaired fasting glucose; M15.0 Primary generalized (osteo)arthritis; R53.82 Chronic fatigue, unspecified
CPT/HCPCS: 36415; 80053; 80061; 81003; 82550; 83036; 85025

== ENCOUNTER 2023-02-17 13:30 | Outpatient (CLI) | payer MEDICARE, SELFPAY ==
--- NOTE | ~2023-02-17 | US_ITS ---
EXAMINATION: US carotid duplex BI DATE: 02/17/2023 14:40 INDICATION: Bilateral carotid stenosis. Left carotid endarterectomy. TECHNIQUE: Grayscale, color Doppler, and pulsed Doppler images of the cervical carotid arteries were obtained. The degree of vessel stenosis is placed in one of the following categories: normal, <50%, 5 0-69%, >=70% but less than near-occlusion, near-occlusion, or total occlusion. Note that percent sten osis relative to normal distal artery lumen diameter is indirectly measured from velocity measurement s as described by Gunnar, et al. Radiology 2003; [id number]:[id number]. COMPARISON: Ultrasound 02/15/2022 FINDINGS: RIGHT: The right common carotid artery (CCA) peak systolic velocity (PSV) is 67 cm/s. The right internal car otid artery (ICA) PSV is 183 cm/s. The right ICA end-diastolic velocity (EDV) is 40 cm/s. The right I CA/CCA PSV ratio is 2.7. Grayscale and color Doppler images yield an estimate of >=50% diameter reduc tion from plaque in the ICA. There is antegrade flow in the right vertebral artery. LEFT: The left CCA PSV is 72 cm/s. The left ICA PSV is 81 cm/s. The left ICA EDV is 23 cm/s. The left ICA/C CA PSV ratio is 1.1. Grayscale and color Doppler images yield an estimate of <50% diameter reduction from plaque in the ICA. There is antegrade flow in the left vertebral artery. IMPRESSION: 1. 50-69% stenosis in the right internal carotid artery. 2. <50% stenosis in the left internal carotid artery. Reviewed, dictated and finalized at location B.
== END 2023-02-17 13:31 | disposition home or self-care (01) ==
LOC: CHSIMG 13:32
PROVIDERS: PCP Internal Medicine; Visit Provider Internal Medicine
DX: I65.23 Occlusion and stenosis of bilateral carotid arteries (principal)
CPT/HCPCS: 93880

== ENCOUNTER 2023-02-28 14:05 | Outpatient (CLI) | payer MEDICARE, SELFPAY | END 2023-02-28 14:06 | disposition home or self-care (01) | PROVIDERS: PCP Internal Medicine; Visit Provider Specialist | DX: C44.319 Basal cell carcinoma of skin of other parts of face (principal) | CPT/HCPCS: 88305 ==

== ENCOUNTER 2023-08-22 07:11 | Outpatient (CLI) | payer MEDICARE, OTHER, SELFPAY ==
[2023-08-22 07:38] LABS: Appearance Urine Clear (Clear); Basophils Absolute Auto 0.05 K/mm3 (0.00-0.10); Basophils Percent Auto 0.7 % (0.0-1.0); Bilirubin Urine Negative (Negative); Blood Urine Negative (Negative); Color Urine Light Yellow (Yellow); Eosinophils Absolute Auto 0.25 K/mm3 (0.02-0.50); Eosinophils Percent Auto 3.3 % (1.0-6.0); Glucose Urine UA Negative (Negative); Hematocrit 48.5 % (37.0-46.0); Immature Granulocyte Absolute 0.03 K/mm3 (0.00-0.00); Immature Granulocyte Percent A 0.4 % (0.0-0.0); Ketones Urine Negative (Negative); Leukocyte Esterase Ur Negative (Negative); Lymphocytes Absolute Auto 2.14 K/mm3 (1.10-4.50); Lymphocytes Percent Auto 27.9 % (18.0-42.0); Mean Corpuscular Hemoglobin 31.9 pg (27.0-31.0); Mean Corpuscular Volume 96.8 fL (78.0-102.0); Monocytes Absolute Auto 0.85 K/mm3 (0.10-0.90); Monocytes Percent Auto 11.1 % (2.0-11.0); Neutrophils Absolute Auto 4.4 K/mm3 (1.7-7.2); Neutrophils Percent Auto 56.6 % (50.0-70.0); Nitrate Urine Negative (Negative); Platelet Count Result 213 K/mm3 (150-420); Protein Urine Negative (Negative); Red Blood Count 5.01 M/mm3 (4.70-6.10); Specific Grav Ur 1.025 (1.010-1.020); Urobilinogen Urine 0.2 mg/dL (0.2-1.0); White Blood Count 7.7 K/mm3 (4.8-10.8)
[2023-08-22 07:41] LABS: Add Urine Microscopic? NO
[2023-08-22 08:28] LABS: Alanine Aminotransferase 35 U/L (16-63); Albumin Level 3.6 g/dL (3.4-5.0); Alkaline Phosphatase 92 U/L (46-116); Anion Gap 7 mmol/L (8-16); Aspartate Amino Transferase 16 U/L (15-37); Bilirubin,Total 0.5 mg/dL (0.00-1.00); Blood Urea Nitrogen 24 mg/dL (7-18); Calcium 8.9 mg/dL (8.5-10.1); Carbon Dioxide 31 mmol/L (21-32); Chloride 107 mmol/L (98-108); Cholesterol 145 mg/dL (0-200); Creatine Kinase 132 U/L (39-308); Estimated Glomerular Filt Rate 59; Free T3 2.68 pg/mL (2.18-3.98); Glucose 92 mg/dL (70-99); HDL Direct 62 mg/dL (40-60); LDL Cholesterol Calculated 66 mg/dL (<130); Osmolality Calculated 304 mOsm/kg (285-295); Potassium 4.3 mmol/L (3.5-5.1); Sodium 145 mmol/L (136-145); Thyroid Stimulating Hormone 2.51 uIU/mL (0.36-3.74); Total Protein 6.2 g/dL (6.4-8.2); Triglycerides 85 mg/dL (0-150)
== END 2023-08-22 07:12 | disposition home or self-care (01) ==
LOC: CHSLAB 07:16
PROVIDERS: PCP Internal Medicine; Visit Provider Internal Medicine
DX: R53.82 Chronic fatigue, unspecified (principal); E78.2 Mixed hyperlipidemia; I10 Essential (primary) hypertension
CPT/HCPCS: 36415; 80053; 80061; 81003; 82550; 84439; 84443; 84481; 85025

== ENCOUNTER 2024-02-19 07:10 | Outpatient (CLI) | payer MEDICARE, OTHER, SELFPAY ==
--- NOTE | ~2024-02-19 | US_ITS ---
EXAMINATION: US carotid duplex BI DATE: 02/19/2024 08:11 INDICATION: Bilateral carotid stenosis. Left carotid endarterectomy. TECHNIQUE: Grayscale, color Doppler, and pulsed Doppler images of the cervical carotid arteries were obtained. The degree of vessel stenosis is placed in one of the following categories: normal, <50%, 5 0-69%, >=70% but less than near-occlusion, near-occlusion, or total occlusion. Note that percent sten osis relative to normal distal artery lumen diameter is indirectly measured from velocity measurement s as described by Gunnar, et al. Radiology 2003; [id number]. COMPARISON: Ultrasound 02/17/2023 FINDINGS: RIGHT: The right common carotid artery (CCA) peak systolic velocity (PSV) is 74 cm/s. The right internal car otid artery (ICA) PSV is 198 cm/s. The right ICA end-diastolic velocity (EDV) is 47 cm/s. The right I CA/CCA PSV ratio is 4.2. Grayscale and color Doppler images yield an estimate of >=50% diameter reduc tion from plaque in the ICA. There is antegrade flow in the right vertebral artery. LEFT: The left CCA PSV is 76 cm/s. The left ICA PSV is 62 cm/s. The left ICA EDV is 20 cm/s. The left ICA/C CA PSV ratio is 0.8. Grayscale and color Doppler images yield an estimate of <50% diameter reduction from plaque in the ICA. There is antegrade flow in the left vertebral artery. IMPRESSION: 1. 50-69% stenosis in the right internal carotid artery. 2. <50% stenosis in the left internal carotid artery. Reviewed, dictated and finalized at location A.
[2024-02-19 07:23] LABS: Basophils Absolute Auto 0.06 K/mm3 (0.00-0.10); Basophils Percent Auto 0.7 % (0.0-1.0); Eosinophils Absolute Auto 0.35 K/mm3 (0.02-0.50); Eosinophils Percent Auto 4.3 % (1.0-6.0); Hematocrit 47.4 % (37.0-46.0); Hemoglobin 15.8 g/dL (12.4-15.3); Immature Granulocyte Absolute 0.02 K/mm3 (0.00-0.00); Immature Granulocyte Percent A 0.2 % (0.0-0.0); Lymphocytes Absolute Auto 2.19 K/mm3 (1.10-4.50); Lymphocytes Percent Auto 26.8 % (18.0-42.0); Mean Corpuscular HGB Conc 33.3 g/dL (32-36); Mean Corpuscular Hemoglobin 33.1 pg (27.0-31.0); Mean Corpuscular Volume 99.2 fL (78.0-102.0); Mean Platelet Volume 9.3 fl (8.7-11.0); Monocytes Absolute Auto 0.87 K/mm3 (0.10-0.90); Monocytes Percent Auto 10.6 % (2.0-11.0); Neutrophils Absolute Auto 4.69 K/mm3 (1.70-7.20); Neutrophils Percent Auto 57.4 % (50.0-70.0); Platelet Count Result 199 K/mm3 (150-420); Red Blood Count 4.78 M/mm3 (4.70-6.10); Red Cell Distribution Width 13.3 % (11.6-14.4); White Blood Count 8.2 K/mm3 (4.8-10.8)
[2024-02-19 07:35] LABS: Add Urine Microscopic? NO; Appearance Urine Clear (Clear); Bilirubin Urine Negative (Negative); Blood Urine Negative (Negative); Color Urine Yellow (Yellow); Glucose Urine UA Negative (Negative); Ketones Urine Negative (Negative); Leukocyte Esterase Ur Negative (Negative); Nitrate Urine Negative (Negative); Protein Urine Negative (Negative); Specific Grav Ur 1.025 (1.010-1.020); Urobilinogen Urine 0.2 mg/dL (0.2-1.0)
[2024-02-20 18:33] LABS: Alanine Aminotransferase 35 U/L (16-63); Albumin Level 3.8 g/dL (3.4-5.0); Alkaline Phosphatase 83 U/L (46-116); Anion Gap 12 mmol/L (4-12); Aspartate Amino Transferase 31 U/L (15-37); Bilirubin,Total 0.7 mg/dL (0.00-1.00); Blood Urea Nitrogen 20 mg/dL (7-18); Calcium 8.6 mg/dL (8.5-10.1); Carbon Dioxide 23 mmol/L (21-32); Chloride 108 mmol/L (98-108); Cholesterol 147 mg/dL (0-200); Creatine Kinase 239 U/L (39-308); Estimated Glomerular Filt Rate > 60; Glucose 89 mg/dL (70-99); HDL Direct 57 mg/dL (40-60); LDL Cholesterol Calculated 69 mg/dL (<130); Osmolality Calculated 297 mOsm/kg (285-295); Potassium 4.5 mmol/L (3.5-5.1); Sodium 143 mmol/L (136-145); Total Protein 6.4 g/dL (6.4-8.2); Triglycerides 105 mg/dL (0-150)
== END 2024-02-19 07:11 | disposition home or self-care (01) ==
LOC: CHSIMG 07:13
PROVIDERS: PCP Internal Medicine; Visit Provider Internal Medicine
DX: E78.2 Mixed hyperlipidemia (principal); I10 Essential (primary) hypertension; R53.82 Chronic fatigue, unspecified; M17.0 Bilateral primary osteoarthritis of knee; I65.23 Occlusion and stenosis of bilateral carotid arteries
CPT/HCPCS: 36415; 80053; 80061; 81003; 82550; 85025; 93880

== ENCOUNTER 2024-05-16 13:21 | Emergency (ER) | payer MEDICARE, OTHER, SELFPAY ==
--- NOTE | ~2024-05-16 | XR_ITS ---
EXAMINATION: XR knee RT 3V DATE: 05/16/2024 13:49 INDICATION: Right knee pain. TECHNIQUE: 3 views of right knee were obtained. COMPARISON: Right knee radiographs 11/25/2020 FINDINGS: There is varus angulation at the knee. No fracture. There is severe tricompartmental osteoa rthritis. There is a moderate-sized knee joint effusion with loose bodies. IMPRESSION: 1. Severe right knee osteoarthritis. 2. Moderate-sized knee joint effusion with loose bodies. Reviewed, dictated and finalized at location B.
[2024-05-16 13:24] VITALS: BP 147/86; PULSE 74; RESP 20; TEMP 36.6; O2SAT 96
--- NOTE | 2024-05-16 14:11 | ED.EXTPRO ---
HPI - Extremity Problem General Chief complaint: Extremity Problem,Nontraumatic Stated complaint: right knee pain Time Seen by Provider: 05/16/24 13:32 Source: patient Mode of arrival: ambulatory Limitations: no limitations History of Present Illness HPI Narrative: this is a 88-year-old male that has a history of of severe osteoarthritis stating bone on bone on the right knee is on blood thinners and only takes Tylenol as needed but having increased pain in the right knee over the last 3 to 4 days no known injury no calf pain or swelling no fever chills no shortness of breath. Complaint: extremity pain Onset (ago): day(s) Pain Consistency: constant Location: right Severity scale (1-10): 4 Quality: aching Relieving factors: immobilization Exacerbating factors: range of motion Associated symptoms: denies other symptoms Related Data Home Medications Medication Instructions Recorded Confirmed amlodipine 5 mg tablet 5 mg PO DAILY 03/08/22 05/16/24 atorvastatin 40 mg tablet 40 mg PO DAILY 03/08/22 05/16/24 clopidogrel 75 mg tablet 75 mg PO DAILY 03/08/22 05/16/24 losartan 50 mg-hydrochlorothiazide 1 tablet PO DAILY 03/08/22 05/16/24 12.5 mg tablet Allergies Allergy/AdvReac Type Severity Reaction Status Date / Time Penicillins Allergy Unknown HIVES Verified 05/16/24 13:28 Iodinated Contrast Media Allergy Unknown Verified 05/16/24 13:28 Review of Systems Review of Systems: All systems reviewed & are unremarkable except as noted in HPI and below PMFSH Past Medical History Medical History CVA (cerebral vascular accident) Dyslipidemia Hypertension Social History Social History Smoking status: Former smoker Substance use: never Exam Const: General: healthy appearing and no acute distress Nutritional Appearance: well nourished and obese Orientation/consciousness: patient oriented x3 Limitations: physical limitations Resp: Effort & Inspection: normal respiratory effort Auscultation: clear to auscultation bilaterally GI: GI Palp: Yes Soft to palpation Auscultation: normal bowel sounds Skin: General skin exam: normal color Rashes: no rashes Wounds: no wounds Neuro: General: patient oriented x3 and moves all extremities Extrem: General: no pedal edema Other: Tender right knee with some palpation with no calf pain no posterior knee pain no calf swelling or redness. Course Course Emergency Course: Patient had taken [id number] Tylenol prior to arrival as on blood thinners currently history of CVA, had x-ray performed which showed severe osteoarthritis with joint effusion. Advised patient to follow-up with his primary for possible referral to Ortho. Vital Signs Vital signs: Vital Signs Temperature 36.6 C 05/16/24 13:24 Pulse Rate 74 05/16/24 13:24 Respiratory Rate 20 05/16/24 13:24 Blood Pressure 147/86 H 05/16/24 13:24 Pulse Oximetry 96 05/16/24 13:24 Oxygen Delivery Room Air 05/16/24 13:24 Temperature 36.6 C 05/16/24 13:24 Pulse Rate 74 05/16/24 13:24 Respiratory Rate 20 05/16/24 13:24 Blood Pressure 147/86 H 05/16/24 13:24 Pulse Oximetry 96 05/16/24 13:24 Oxygen Delivery Room Air 05/16/24 13:24 Critical Care Time Critical Care Time Critical Care Time: No Discharge Plan Discharge Clinical Impression: Chronic knee pain Qualifiers: Laterality: right Qualified Code(s): M25.561 - Pain in right knee Joint effusion Qualifiers: Effusion of joint location: knee Laterality: right Qualified Code(s): M25.461 - Effusion, right knee Patient Disposition: Home, Self-Care Condition: Stable Instructions: Antibiotic Form, Swollen Knee Joint (ED), Knee Pain (ED) Additional Instructions: advised to take medication as prescribed and follow with primary within the next 3 to 4 days for further evaluation and treatment. Prescriptions: New oxycodone-acetaminophen [Percocet] 5-325 mg tablet 1 tablet PO Q6H PRN (Reason: pain) Qty: 14 0RF No Action atorvastatin 40 mg tablet 40 mg PO DAILY clopidogrel 75 mg tablet 75 mg PO DAILY losartan-hydrochlorothiazide 50-12.5 mg tablet 1 tablet PO DAILY amlodipine 5 mg Tablet 5 mg PO DAILY Follow-up/Referrals: Melva Parham MD [Primary Care Provider] - Time of Disposition: 14:17
[2024-05-16 14:27] VITALS: BP 147/86; PULSE 74; RESP 20; O2SAT 96
== END 2024-05-16 14:27 | disposition home or self-care (01) ==
PROVIDERS: Emergency Provider Emergency Medicine; PCP Internal Medicine
DX: M25.461 Effusion, right knee (principal); I10 Essential (primary) hypertension; E78.5 Hyperlipidemia, unspecified; Z79.899 Other long term (current) drug therapy; Z86.73 Personal history of transient ischemic attack (TIA), and cerebral infarction without residual deficits; Z87.891 Personal history of nicotine dependence
CPT/HCPCS: 73562; 99283

== ENCOUNTER 2024-05-17 09:35 | Outpatient (CLI) | payer MEDICARE, SELFPAY ==
[2024-05-17 09:50] LABS: Basophils Absolute Auto 0.05 K/mm3 (0.00-0.10); Basophils Percent Auto 0.6 % (0.0-1.0); Eosinophils Absolute Auto 0.19 K/mm3 (0.02-0.50); Eosinophils Percent Auto 2.2 % (1.0-6.0); Hematocrit 48.2 % (37.0-46.0); Hemoglobin 16.3 g/dL (12.4-15.3); Immature Granulocyte Absolute 0.02 K/mm3 (0.00-0.00); Immature Granulocyte Percent A 0.2 % (0.0-0.0); Lymphocytes Absolute Auto 1.79 K/mm3 (1.10-4.50); Lymphocytes Percent Auto 20.3 % (18.0-42.0); Mean Corpuscular HGB Conc 33.8 g/dL (32-36); Mean Corpuscular Hemoglobin 33.1 pg (27.0-31.0); Mean Platelet Volume 9.2 fl (8.7-11.0); Monocytes Absolute Auto 1.03 K/mm3 (0.10-0.90); Monocytes Percent Auto 11.7 % (2.0-11.0); Neutrophils Absolute Auto 5.75 K/mm3 (1.70-7.20); Platelet Count Result 215 K/mm3 (150-420); Red Blood Count 4.92 M/mm3 (4.70-6.10); Red Cell Distribution Width 13.2 % (11.6-14.4); White Blood Count 8.8 K/mm3 (4.8-10.8)
[2024-05-17 10:01] LABS: Add Urine Microscopic? NO; Appearance Urine Clear (Clear); Bilirubin Urine Negative (Negative); Blood Urine Negative (Negative); Color Urine Light Yellow (Yellow); Glucose Urine UA Negative (Negative); Ketones Urine Negative (Negative); Leukocyte Esterase Ur Negative LEU/UL (Negative); Nitrate Urine Negative (Negative); Protein Urine Negative (Negative); Specific Grav Ur 1.015 (1.010-1.020); Urobilinogen Urine 0.2 mg/dL (0.2-1.0)
[2024-05-17 10:56] LABS: Alanine Aminotransferase 31 U/L (16-63); Albumin Level 3.7 g/dL (3.4-5.0); Alkaline Phosphatase 85 U/L (46-116); Anion Gap 9 mmol/L (4-12); Aspartate Amino Transferase 25 U/L (15-37); Bilirubin,Total 0.7 mg/dL (0.00-1.00); Blood Urea Nitrogen 19 mg/dL (7-18); Calcium 9.2 mg/dL (8.5-10.1); Carbon Dioxide 29 mmol/L (21-32); Chloride 106 mmol/L (98-108); Estimated Glomerular Filt Rate 54; Glucose 84 mg/dL (70-99); NT Pro B Type Natriuretic Pept 150 pg/mL (0-450); Osmolality Calculated 299 mOsm/kg (285-295); Potassium 4.3 mmol/L (3.5-5.1); Sodium 144 mmol/L (136-145); Total Protein 6.4 g/dL (6.4-8.2)
== END 2024-05-17 09:36 | disposition home or self-care (01) ==
LOC: CHSLAB 09:36
PROVIDERS: PCP Internal Medicine; Visit Provider Internal Medicine
DX: M25.561 Pain in right knee (principal); I50.9 Heart failure, unspecified; R35.89 Other polyuria; R06.00 Dyspnea, unspecified
CPT/HCPCS: 36415; 80053; 81003; 83880; 85025

== ENCOUNTER 2024-05-23 06:41 | Outpatient (CLI) | payer MEDICARE, OTHER, SELFPAY ==
--- NOTE | ~2024-05-23 | MR_ITS ---
MRI of the right knee Clinical history: Pain Technique: Coronal proton density and proton density-weighted images, sagittal proton-density and T2 fat-sat images, and axial proton-density fat-saturated images were acquired. 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 Posterior cruciate ligament intact. Medial collateral ligament and the lateral collateral ligament complex are intact. Popliteus tendon is intact. There is extensive complex tearing of the anterior horn of the lateral meniscus, which is largely mac erated appearance. There is diffuse complex tearing of the entirety of the medial meniscus, which is largely macerated in its entirety. There is probable extrusion of the body segment into the medial gu tter. There is extensive severe chondromalacia of the patella. There is extensive moderate to high-grade ch ondromalacia the femoral trochlea. There is diffuse grade IV chondromalacia on both sides of the medi al compartment with irregularity/remodeling of the articular surface of the medial femoral condyle in particular. There is extensive high-grade chondromalacia the lateral compartment. There is extensive tricompartmental osteophyte formation. There is narrowing of the medial and lateral joint spaces. Extensor mechanism is intact. Moderate joint effusion present. No Villa's cyst. 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 Diffuse extensive complex tearing of the entire medial meniscus, which is largely completely macerate d. Probable extrusion of the body segment into the medial gutter. Extensive complex tearing of the anterior horn of the lateral meniscus, which is largely macerated. Severe tricompartmental osteoarthritis, as detailed above. Moderate joint effusion. Reviewed, dictated and finalized at location . 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 Diffuse extensive complex tearing of the entire medial meniscus, which is large ly completely macerated. Probable extrusion of the body segment into the medial gutter. Extensive complex tearing of the anterior horn of the lateral meniscus, which i s largely macerated. Severe tricompartmental osteoarthritis, as detailed above. Moderate joint effusion.
== END 2024-05-23 06:42 | disposition home or self-care (01) ==
LOC: CHSIMG 06:49
PROVIDERS: PCP Internal Medicine; Visit Provider Internal Medicine
DX: M25.561 Pain in right knee (principal); S83.231A Complex tear of medial meniscus, current injury, right knee, initial encounter; S83.271A Complex tear of lateral meniscus, current injury, right knee, initial encounter; M17.11 Unilateral primary osteoarthritis, right knee; M25.461 Effusion, right knee
CPT/HCPCS: 73721

== ENCOUNTER 2024-05-30 12:48 | Outpatient (CLI) | payer MEDICARE, OTHER, SELFPAY ==
--- NOTE | 2024-05-30 12:52 | ECHO_ITS ---
Patient Info Name: Maurizio Junior Age: 88 years : 1935 Gender: Male Ht: 72 in Wt: 240 lbs BSA: 2.38 m2 HR: 67 bpm BP: 145 / 95 mmHg Heart Rhythm: Sinus Rhythm Technical Quality: Poor Exam Date: 05/30/2024 1:44 PM Exam Location: Echo Lab Patient Status: Outpatient Admit Date: 05/30/2024 Staff Ordering Physician: Melva Parham MD President Of [place]: Anil Lew RDCS Attending Provider: Melva Parham MD Referring Physician: Prasad MOTLEY; Exam Type: CA echo doppler color flow Study Info Indications - dyspnea Complete two-dimensional, color flow and Doppler transthoracic echocardiogram is performed with contrast to opacify the left ventricle and to improve the deliniation of the left ventricle endocardial borders. Reason for Poor Study: poor echocardiographic windows Summary 1. Definity contrast administered improved wall motion interpretation. 2. Left ventricular chamber dimension is normal. 3. Left ventricular systolic function is normal, estimated at 60-65%. 4. There is mild concentric increased left ventricular wall thickness. 5. The left ventricular diastolic function is grade I diastolic dysfunction. 6. E/e' 10 is mildly elevated. 7. No pulmonary hypertension, estimated pulmonary arterial systolic pressure is 30 mmHg. Left Ventricle E/e' 10 is mildly elevated. Definity contrast administered improved wall motion interpretation. Left ventricular chamber dimension is normal. Left ventricular systolic function is normal, estimated at 60-65%. There is mild concentric increased left ventricular wall thickness. The left ventricular diastolic function is grade I diastolic dysfunction. Right Ventricle Right ventricular systolic function is normal and with normal TAPSE 3.1 cm. Right ventricular chamber dimension is normal. Left Atria Left atrial chamber dimension is normal. Right Atria Right atrial chamber dimension is normal. Aortic Valve The aortic valve is probable trileaflet. There is no aortic valve stenosis. There is no aortic valve regurgitation. Pulmonic Valve There is no pulmonic regurgitation. Mitral Valve There is no mitral valve stenosis. There is no mitral valve regurgitation. Tricuspid Valve There is no tricuspid valve regurgitation. No pulmonary hypertension, estimated pulmonary arterial systolic pressure is 30 mmHg. Pericardium/Pleural There is no pericardial effusion. Inferior Vena Cava Normal inferior vena cava with >50% collapse upon inspiration consistent with normal right atrial pressure, 5 mmHg. Aorta The aortic root size at the sinus of Valsalva is normal. Left Ventricular Outflow Tract Name Value Normal LVOT 2D LVOT Diameter 2.2 cm LVOT Doppler LVOT Peak Velocity 84 cm/s LVOT Peak Gradient 3 mmHg LVOT Mean Gradient 2 mmHg LVOT VTI 19 cm LVOT VTI/AV VTI Ratio 0.8 LVOT Stroke Volume 72 ml Mitral Valve Name Value Normal MV Doppler MV Decel [place] 281 cm/s2 MV PHT 73 ms MV Area (PHT) 3.0 cm2 4.0-5.0 MV Diastolic Function MV E Peak Velocity 71 cm/s MV A Peak Velocity 87 cm/s MV E/A 0.8 MV Decel Time 253 ms Tricuspid Valve Name Value Normal TV Regurgitation Doppler TR Peak Velocity 249 cm/s TR Peak Gradient 25 mmHg Estimated PAP/RSVP RA Pressure 5 mmHg <=5 PA Systolic Pressure 30 mmHg <36 RV Systolic Pressure 30 mmHg <36 Aortic Valve Name Value Normal AV Doppler AV Peak Velocity 120 cm/s AV Peak Gradient 6 mmHg AV Mean Gradient 4 mmHg AV VTI 23 cm AV Area (Cont Eq VTI) 3.2 cm2 >=3.0 AV Area (Cont Eq Darren) 2.7 cm2 AV V1/V2 Ratio 0.70 AV Regurgitation 2D LVOT Area 3.9 cm2 Ventricles Name Value Normal LV Dimensions 2D/MM IVS Diastolic Thickness (2D) 1.1 cm 0.6-1.0 LVID Diastole (2D) 4.5 cm 4.2-5.8 LVIW Diastolic Thickness (2D) 1.2 cm 0.6-1.0 LVID Systole (2D) 3.0 cm 2.5-4.0 LVOT Diameter 2.2 cm LV Mass (2D Cubed) 187.66 g 88.00-224.00 LV Mass Index (2D Cubed) 79 g/m2 49-115 Relative Wall Thickness (2D) 0.53 LV Fractional Shortening/Ejection Fraction 2D/MM LV Fractional Shortening (2D) 32 % 25-43 LV EF (2D Teichrigoz) 60 % 52-72 LV Diastolic Volume (4C MOD) 101 ml LV EF (4C MOD) 63 % LV Diastolic Volume (2C MOD) 77 ml LV EF (2C MOD) 65 % LV Diastolic Volume (BP MOD) 88 ml 62-150 LV Diastolic Volume Index (BP MOD) 37 ml/m2 34-74 LV Systolic Volume (BP MOD) 32 ml 21-61 LV Systolic Volume Index (BP MOD) 13 ml/m2 11-31 LV EF (BP MOD) 64 % 52-72 LV Diastolic Length (4C) 8.6 cm LV Systolic Length (4C) 6.4 cm LV Stroke Volume (4C MOD) 63 ml Atria Name Value Normal LA Dimensions LA Volume (4C A-L) 48 ml LA Volume (BP A-L) 38 ml RA Dimensions RA Area (4C) 12.9 cm2 <=18.0 Report Signatures
== END 2024-05-30 12:49 | disposition home or self-care (01) ==
LOC: CHSIMG 12:49
PROVIDERS: PCP Internal Medicine; Visit Provider Internal Medicine
DX: R06.00 Dyspnea, unspecified (principal); I50.9 Heart failure, unspecified; I50.30 Unspecified diastolic (congestive) heart failure
CPT/HCPCS: 93306

== ENCOUNTER 2024-08-23 07:44 | Outpatient (CLI) | payer MEDICARE, OTHER, SELFPAY ==
[2024-08-23 07:58] LABS: Basophils Absolute Auto 0.05 K/mm3 (0.00-0.10); Basophils Percent Auto 0.6 % (0.0-1.0); Eosinophils Absolute Auto 0.26 K/mm3 (0.02-0.50); Eosinophils Percent Auto 3.3 % (1.0-6.0); Hematocrit 49.6 % (37.0-46.0); Hemoglobin 16.2 g/dL (12.4-15.3); Immature Granulocyte Absolute 0.01 K/mm3 (0.00-0.00); Immature Granulocyte Percent A 0.1 % (0.0-0.0); Lymphocytes Absolute Auto 2.21 K/mm3 (1.10-4.50); Lymphocytes Percent Auto 28.1 % (18.0-42.0); Mean Corpuscular HGB Conc 32.7 g/dL (32-36); Mean Corpuscular Hemoglobin 32.5 pg (27.0-31.0); Mean Corpuscular Volume 99.6 fL (78.0-102.0); Mean Platelet Volume 9.2 fl (8.7-11.0); Monocytes Absolute Auto 0.83 K/mm3 (0.10-0.90); Monocytes Percent Auto 10.5 % (2.0-11.0); Neutrophils Absolute Auto 4.51 K/mm3 (1.70-7.20); Neutrophils Percent Auto 57.4 % (50.0-70.0); Platelet Count Result 215 K/mm3 (150-420); Red Blood Count 4.98 M/mm3 (4.70-6.10); Red Cell Distribution Width 13.4 % (11.6-14.4); White Blood Count 7.9 K/mm3 (4.8-10.8)
[2024-08-23 08:09] LABS: Add Urine Microscopic? NO; Appearance Urine Clear (Clear); Bilirubin Urine Negative (Negative); Blood Urine Negative (Negative); Color Urine Yellow (Yellow); Glucose Urine UA Negative (Negative); Ketones Urine Negative (Negative); Leukocyte Esterase Ur Negative (Negative); Nitrate Urine Negative (Negative); Protein Urine Negative (Negative); Urobilinogen Urine 0.2 mg/dL (0.2-1.0)
[2024-08-23 10:07] LABS: Alanine Aminotransferase 39 U/L (16-63); Albumin Level 3.8 g/dL (3.4-5.0); Alkaline Phosphatase 93 U/L (46-116); Anion Gap 11 mmol/L (4-12); Aspartate Amino Transferase 30 U/L (15-37); Bilirubin,Total 0.8 mg/dL (0.00-1.00); Blood Urea Nitrogen 19 mg/dL (7-18); Calcium 8.8 mg/dL (8.5-10.1); Carbon Dioxide 27 mmol/L (21-32); Chloride 107 mmol/L (98-108); Cholesterol 168 mg/dL (0-200); Creatine Kinase 293 U/L (39-308); Estimated Glomerular Filt Rate > 60; Free T3 2.76 pg/mL (2.18-3.98); Free T4 Free Thyroxine 0.94 ng/dL (0.76-1.46); Glucose 91 mg/dL (70-99); HDL Direct 64 mg/dL (40-60); LDL Cholesterol Calculated 74 mg/dL (<130); Osmolality Calculated 302 mOsm/kg (285-295); Potassium 4.4 mmol/L (3.5-5.1); Sodium 145 mmol/L (136-145); Thyroid Stimulating Hormone 2.44 uIU/mL (0.36-3.74); Total Protein 6.5 g/dL (6.4-8.2); Triglycerides 148 mg/dL (0-150)
== END 2024-08-23 07:45 | disposition home or self-care (01) ==
PROVIDERS: PCP Internal Medicine; Visit Provider Internal Medicine
DX: E78.2 Mixed hyperlipidemia (principal); I10 Essential (primary) hypertension; R53.82 Chronic fatigue, unspecified; M17.0 Bilateral primary osteoarthritis of knee; I63.239 Cerebral infarction due to unspecified occlusion or stenosis of unspecified carotid artery
CPT/HCPCS: 36415; 80053; 80061; 81003; 82550; 84439; 84443; 84481; 85025

== ENCOUNTER 2024-09-24 10:41 | Outpatient (CLI) | payer MEDICARE, OTHER, SELFPAY ==
--- NOTE | ~2024-09-24 | XR_ITS ---
XR chest 2V Ordering provider: Melva Parham MD History: 88 years Male with . Wheezing, cough, chills . Comparison: August 30, 2022 FINDINGS: MEDIASTINUM: The cardiac silhouette is not enlarged. LUNGS: No infiltrates, effusions or pneumothorax. OTHER: No free air under the diaphragm. Degenerative changes of the spine. IMPRESSION: No acute cardiopulmonary pathology. Reviewed, dictated and finalized at location A.
[2024-09-24 11:01] LABS: Hematocrit 47.6 % (37.0-46.0); Hemoglobin 15.6 g/dL (12.4-15.3); Mean Corpuscular HGB Conc 32.8 g/dL (32-36); Mean Corpuscular Hemoglobin 32.3 pg (27.0-31.0); Mean Corpuscular Volume 98.6 fL (78.0-102.0); Mean Platelet Volume 9.2 fl (8.7-11.0); Platelet Count Result 200 K/mm3 (150-420); Red Blood Count 4.83 M/mm3 (4.70-6.10); Red Cell Distribution Width 13.2 % (11.6-14.4); White Blood Count 7.8 K/mm3 (4.8-10.8)
[2024-09-24 11:13] LABS: Band Neutrophils Percent 0 % (0-6); Lymphocytes Absolute Manual 0.62 K/mm3 (1.1-4.5); Lymphocytes Percent Manual 8 % (18-44); Monocytes Absolute Manual 1.56 K/mm3 (0.1-0.90); Monocytes Percent Manual 20 % (3-9); Neutrophils Absolute Manual 5.61 K/mm3 (1.3-6.7); Neutrophils Percent Manual 72 % (46-73); Platelet Estimate Adequate (Adequate); Total Cells Counted 100
[2024-09-24 11:36] LABS: RSV RNA, RT-PCR Negative (Negative)
--- OUTSIDE RECORDS SUMMARY | 2024-09-24 12:16 | XMS_ITS | Encounter Summary ---
Author Organization [facility] Address [address] [place] [address] Care Team Providers Care Antique Clock Repairer Name Role Phone Melva Parham MD Primary Care Provider [phone] Jonathan Montana MD Unavailable [phone] Virginia Mishra NP Unavailable Encounter Details Date Type Department Care Team (Late st Contact Info) Description 11/22/2018 90 Day Stroke Follow-up Call [facility] [employer] [place] [address] [place] [address] Radha Rubio, RN Social History Tobacco Use Types Packs/Day Years Used Date Smoking Tobacco: Former Smokeless Tobacco: Never Alcohol Use Standard Drinks/Week Comments Yes 3.3 (1 standard drink = 0.6 oz p ure alcohol) Sex and Gender Information Value Date Recorded Sex Assigned at Not on file Legal Sex Male 9:59 PM CDT Gender Identity Not on file Sexual Orientation Not on file Occupation Industry Job Start Date Job End Date Not on file Not on file Not on file Not on file Not on file Not on file Not on file Not on file documented as of this encounter Functional Status * RETIRED Are you deaf or do you have serious difficulty hearing Answer Date of Assessment Author Status No 04/21/2018 11:05 AM CDT Acti ve * RETIRED Are you blind or do you have serious difficulty seeing, even when wearing glasses? Answer Date of Assessment Author Status No 04/21/2018 11:05 AM NARAT Acti ve * Do you have serious difficulty walking or climbing stairs? Answer Date of Assessment Author Status No 04/21/2018 11:05 AM Shanelle Dumas RN Active * Do you have difficulty dressing or bathing? Answer Date of Assessment Author Status No 04/21/2018 11:05 AM Shanelle Dumas RN Active * Because of a physical, mental, or emotional condition, do you have difficulty doing errands alone such as visiting a doctor's office or shopping? Answer Date of Assessment Author Status No 04/21/2018 11:05 AM Shanelle Dumas RN Active documented as of this encounter Mental Status * Because of a physical, mental, or emotional condition, do you have serious difficulty concentrating, remembering, or making decisions? Answer Entry Date Author Status No 04/21/2018 11:05 AM Shanelle Dumas RN Active documented in this encounter Plan of Treatment Not on file documented as of this encounter Visit Diagnoses Not on filedocumented in this encounter Care Teams Antique Clock Repairer Relationship Specialty Start Date End Date Melva Parham MD [address] [place] [address] PCP - General INTERNAL MEDICINE 01/27/16 Jonathan Montana MD [address] [place] [address] [employer] Travel Agent CARDIOVASCULAR DISEASE 01/27/16 Virginia Mishra NP [address] [facility] [address] [place] [address] NURSE PRACTITIONER 09/01/16 documented as of this encounter
--- OUTSIDE RECORDS SUMMARY | 2024-09-24 12:16 | XMS_ITS | Encounter Summary ---
Author Organization [facility] Address [address] [place] [address] Care Team Providers Care Computer Help Desk Specialist Name Role Phone Melva Parham MD Primary Care Provider [phone] Jonathan Montana MD Unavailable [phone] Virginia Mishra NP Unavailable [phone] Encounter Details Date Type Department Care Team (Late st Contact Info) Description 10/20/2014 Abstract [facility] [address] [place] [address] Jonathan Montana MD [address] [place] [address], [address] [place] [address] Social History Tobacco Use Types Packs/Day Years Used Date Smoking Tobacco: Never Alcohol Use Standard Drinks/Week Comments No 0 (1 standard drink = 0.6 oz pur e alcohol) Sex and Gender Information Value Date Recorded Sex Assigned at Not on file Legal Sex Male 9:59 PM CDT Gender Identity Not on file Sexual Orientation Not on file Occupation Industry Job Start Date Job End Date Not on file Not on file Not on file Not on file documented as of this encounter Plan of Treatment Not on file documented as of this encounter Visit Diagnoses Not on filedocumented in this encounter Care Teams Computer Help Desk Specialist Relationship Specialty Start Date End Date Melva Parham MD [address] [place] [address] PCP - General INTERNAL MEDICINE 01/27/16 Jonathan Montana MD [address] [place] [address] [employer] Instrument Repairer CARDIOVASCULAR DISEASE 01/27/16 Virginia Mishra NP [address] [facility] [address] [place] [address] NURSE PRACTITIONER 09/01/16 documented as of this encounter
--- OUTSIDE RECORDS SUMMARY | 2024-09-24 12:16 | XMS_ITS | Clinical Summary ---
Author Organization [facility] Address [address] [place] [address] Care Team Providers Care Director Of Sales Marketing Name Role Phone Melva Parham MD Primary Care Provider [phone] Jonathan Montana MD Unavailable [phone] Virginia Mishra NP Unavailable [phone] Allergies Active Allergy Reactions Criticality Noted Date Comments Penicillins Rash,Unknown Low 08/25/2014 Medications aspirin (ASPIRIN CHILDRENS) 81 MG chewable tablet Chew 1 tablet by mouth daily. 5 Active Flaxseed, Linseed, (FLAX SEED OIL) 1300 MG Cap Take 3 capsules by mouth daily. 5 Active Glucosamine HCl (GLUCOSAMINE OR) Active Multiple Vitamins-Minera ls (MULTIVITAMIN ADULTS 50+ OR) Activ e amlodipine 5 MG tablet Take 1 tablet (5 mg total) by mouth daily. 30 tablet 8 Active atorvastatin 40 MG tablet Take 1 tablet (40 mg total) by mouth every evening. 30 tablet 8 Active hydrochlorothia zide 25 MG tablet Take 1 tablet (25 mg total) by mouth daily. 30 tablet 8 Active clopidogrel (PLAVIX) 75 MG tablet Take 1 tablet (75 mg total) by mouth daily. Use aspirin 81 mg orally every day and clopidogrel 75 mg orally every day for secondary stroke prevention x 21 days, then stop the aspirin and just use Plavix (this is from the CHANCE trial) 30 tablet 8 Active Coenzyme Q10 (CO Q-10) 100 MG Cap Take 1 tablet by mouth daily. Active lisinopril 2.5 MG tablet Take 1 tablet by mouth daily. Active methylPREDNISol one, DOLORES, 4 MG tablet 7 Active [place]-3 1400 MG Cap Active pravastatin 40 MG tablet Take 1 tablet by mouth daily. Active aspirin EC (ASPIRIN) 81 MG EC tablet Take 1 tablet by mouth daily. Active clopidogrel (PLAVIX) 75 MG tablet Take 1 tablet by mouth daily. Active Flaxseed, Linseed, (RA FLAXSEED OIL) 1030 MG Cap Active Multiple Vitamins-Minera ls (CENTRUM SILVER) Tab Take 1 tablet by mouth. Active Active Problems Problem Noted Date Diagnosed Date Stroke ([facility]) 04/18/2018 S/P carotid endarterectomy 10/25/2017 CVA (cerebral vascular accident) ([facility] C) 07/17/2014 Overview (02/15/2016): no residual manifestations. Essential hypertension Mixed hyperlipidemia Stenosis of right carotid artery Immunizations Name Administration Dates Next Due Dtap 10/08/2004 Influenza (Generic) 08/20/2013 Pneumococcal (Prevnar 13) 08/09/2017 Pneumococcal(Ppv 23)Aka Pneumovax 01/27/2016,10/2013 Tdap (Adacel) 08/19/2016 Family History Medical History Relation Comments Arthritis Father CHF Father Arthritis Mother Relation Status Comments Brother Alive Father (Age 89) Maternal Grandfather Maternal Grandmother Heart probl ems Mother (Age 101) Paternal Grandfather Paternal Grandmother Social History Tobacco Use Types Packs/Day Years Used Date Smoking Tobacco: Former Smokeless Tobacco: Never Tobacco Cessation:Counseling Given: No Alcohol Use Standard Drinks/Week Comments Yes 3.3 [...] file Not on file Not on file Last Filed Vital Signs Vital Sign Reading Time Taken Comments Blood Pressure 116/62 06/04/2018 3:24 PM COMMUNITY LEADER Pulse 75 06/04/2018 3:24 PM COMMUNITY LEADER Temperature 36.8 C (98.2 F) 04/21/2018 12:03 PM CDT Respiratory Rate 17 04/21/2018 12:03 PM CDT Oxygen Saturation 92% 04/21/2018 12:03 PM CDT Inhaled Oxygen Concentration - - Weight 107 kg (236 lb) 06/04/2018 3:24 PM COMMUNITY LEADER Height 180.3 cm (5' 11 ) 06/04/2018 3:24 PM COMMUNITY LEADER Body Mass Index 32.92 06/04/2018 3:24 PM COMMUNITY LEADER Plan of Treatment Health Maintenance Due Date Last Done Comments Zoster Vaccines (1 of 2) 12/19/1987 Annual Medicare Wellness Visit 2002 RSV Immunization or 60+ Years (1 - 1-dose 75+ series) 2012 COVID-19 Vaccine (2023-2 5 season) 2024 Influenza Adult (#1) 2024 08/20/2013 DTaP, Tdap and Td Vaccines ( 3 - Td or Tdap) 08/19/2026 08/19/2016, 10/08/2004 Pneumococcal Vaccine: 65+ Years Completed 08/09/2017, 01/27/2016, 08/20/2013 Meningococcal B Vaccine Aged Out No l onger eligible based on patient's age to complete this topic Meningococcal Vaccine Aged Out No zabrina rajendra eligible based on patient's age to complete this topic RSV Immunizations Under 20 Months Aged Out No longer eligible b ased on patient's age to complete this topic Insurance MEDIC[place] [employer] [id number] [employer] Advance Directives Documents on File Type Date Recorded Patient Oil House Attendant Expl anation Advance Directives and Living Will 11/06/2017 4:11 PM 12/03/2002 - Advance Directives Advance Directives and Living Will 11/06/2017 4:09 PM 12/03/2002 - P.O.A. f or Health Care - Desirae HaydeeMaeve Advance Directives and Living Will 09/20/2016 POWER OF MEDICAL OBSERVER FO R HEALTH CARE Advance Directives and Living Will 09/20/2016 ADVANCE DIRECTIVE Advance Directives and Living Will 02/15/2016 ADVANCE DIRECTIVE Advance Directives and Living Will 02/15/2016 POWER OF MEDICAL OBSERVER FO R HEALTH CARE Advance Directives and Living Will 02/15/2016 POWER OF MEDICAL OBSERVER FO R HEALTH CARE Advance Directives and Living Will 12/27/2014 ADVANCE DIRECTIVE Advance Directives and Living Will 12/27/2014 POWER OF MEDICAL OBSERVER FO R HEALTH CARE Advance Directives and Living Will 10/20/2014 ADVANCE DIRECTIVE Advance Directives and Living Will 10/20/2014 POWER OF MEDICAL OBSERVER FO R HEALTH CARE Advance Directives and Living Will 08/06/2014 ADVANCE DIRECTIVE Advance Directives and Living Will 08/06/2014 POWER OF MEDICAL OBSERVER FO R HEALTH CARE Advance Directives and Living Will 08/20/2013 ADVANCE DIRECTIVE * Full Code (Latest Code Status on File) Date Activated Date Inactivated Comments 04/18/2018 9:08 PM 04/21/2018 5:04 PM Care Teams Director Of Sales Marketing Relationship Specialty Start Date End Date Melva Parham MD [address] [place] [address] PCP - General INTERNAL MEDICINE 01/27/16 Jonathan Montana MD [address] [place] [address] Christmas Product Marketing Intern CARDIOVASCULAR DISEASE 01/27/16 Virginia Mishra NP [address] [facility] [address] [place] [address] NURSE PRACTITIONER 09/01/16
--- OUTSIDE RECORDS SUMMARY | 2024-09-24 12:16 | XMS_ITS | Encounter Summary ---
Author Organization [facility] Address [facility] [place] [address] Care Team Providers Care Cyanide Pot Hardener Name Role Phone Melva Parham MD Primary Care Provider [phone] Jonathan Montana MD Unavailable [phone] Virginia Mishra NP Unavailable [phone] Encounter Details Date Type Department Care Team (Late st Contact Info) Description 05/19/2018 Abstract [facility] [place] [address] , [address] [place] [address] Gonzalo Marr MD [address] [place] [address] Social History Tobacco Use Types Packs/Day Years [...] 04/21/2018 11:05 AM CDT Acti ve * Do you have serious [...] on filedocumented in this encounter Care Teams Cyanide Pot Hardener Relationship Specialty Start Date End Date Melva Parham MD [address] [place] [address] PCP - General INTERNAL MEDICINE 01/27/16 Jonathan Montana MD [address] [place] [address] [place] Account Technician CARDIOVASCULAR DISEASE 01/27/16 Virginia Mishra NP [address] [facility] [address] [place] [address] NURSE PRACTITIONER 09/01/16 documented as of this encounter
--- OUTSIDE RECORDS SUMMARY | 2024-09-24 12:16 | XMS_ITS | Encounter Summary ---
Author Organization [facility] Address [address] [place] [address] Care Team Providers Care Refuse Collector Supervisor Name Role Phone Melva Parham MD Primary Care Provider [phone] Jonathan Montana MD Unavailable [phone] Virginia Mishra NP Unavailable [phone] Encounter Details Date Type Department Care Team (Late st Contact Info) Description 09/30/2017 Abstract [facility] [address], [place] [id number] , Generic ConversionMD Social History Tobacco Use Types Packs/Day Years [...] on filedocumented in this encounter Care Teams Refuse Collector Supervisor Relationship Specialty Start Date End Date Melva Parham MD [address] [place] [id number] PCP - General INTERNAL MEDICINE 01/27/16 Jonathan Montana MD [address] [place] [address] [place] Manager Business Management CARDIOVASCULAR DISEASE 01/27/16 Virginia Mishra NP [address] [facility] [address] [place] [address] NURSE PRACTITIONER 09/01/16 documented as of this encounter
== END 2024-09-24 10:42 | disposition home or self-care (01) ==
LOC: CHSLAB 10:43
PROVIDERS: PCP Internal Medicine; Visit Provider Internal Medicine
DX: R05.9 Cough, unspecified (principal); R68.83 Chills (without fever); R06.2 Wheezing
CPT/HCPCS: 36415; 71046; 85025; 87634

== ENCOUNTER 2024-09-30 10:05 | Outpatient (CLI) | payer MEDICARE, OTHER, SELFPAY ==
--- NOTE | ~2024-09-30 | XR_ITS ---
[id number] Ordering provider: Sonali Bhagat, CUT OFF WORKER-C History: . Left knee pain . Comparison: None. FINDINGS: BONES: No acute fracture or dislocation. JOINT SPACES: Severe narrowing of the medial compartment. Marginal osteophytes seen in the knee and p atella. SOFT TISSUES: Vascular calcifications. Minimal fluid in the suprapatellar bursa. IMPRESSION: No acute osseous abnormality left knee. Severe osteoarthritic changes. Reviewed, dictated and finalized at location A.
== END 2024-09-30 10:06 | disposition home or self-care (01) ==
LOC: MICIMG 10:07
PROVIDERS: PCP Internal Medicine; Visit Provider Nurse Practitioner Family
DX: M17.12 Unilateral primary osteoarthritis, left knee (principal)
CPT/HCPCS: 73560

== ENCOUNTER 2025-02-17 07:27 | Outpatient (CLI) | payer MEDICARE, OTHER, SELFPAY ==
--- OUTSIDE RECORDS SUMMARY | 2025-02-17 07:34 | XMS_ITS | Encounter Summary ---
Author Organization [facility] Address [address] [place] [address] Care Team Providers Care [employer] Name Role Phone Melva Parham MD Primary Care Provider [phone] Jonathan Montana MD Unavailable [phone] Virginia Mishra NP Unavailable [phone] Encounter Details Date Type Department Care Team (Late st Contact Info) Description 09/30/2017 Abstract [facility] [address] [place], [place] [id number] , Generic ConversionMD Social History Tobacco Use [...] on filedocumented in this encounter Care Teams [employer] Relationship Specialty Start Date End Date Melva Parham MD [address] [place] [id number] PCP - General INTERNAL MEDICINE 01/27/16 Jonathan Montana MD [address] [place] [address] [place] Converter Operator CARDIOVASCULAR DISEASE 01/27/16 Virginia Mishra NP [address] [facility] [address] [place] [address] NURSE PRACTITIONER 09/01/16 documented as of this encounter
--- OUTSIDE RECORDS SUMMARY | 2025-02-17 07:34 | XMS_ITS | Clinical Summary ---
Author Organization [facility] Address [address] [place] [address] Care Team Providers Care Inletter Name Role Phone Melva Parham MD Primary Care Provider [phone] Jonathan Montana MD Unavailable Virginia Mishra NP Unavailable [phone] Allergies Active Allergy Reactions Criticality Noted Date [...] one, DOLORES, 4 MG tablet 7 Active [place]-3 1400 MG Cap Active pravastatin 40 MG [...] Problems Problem Noted Date Diagnosed Date Stroke ([facility]) 04/18/2018 S/P carotid endarterectomy 10/25/2017 CVA (cerebral vascular accident) ([facility] HHS/ C) 07/17/2014 Overview (02/15/2016): no residual manifestations. Essential hypertension Mixed hyperlipidemia Stenosis of right carotid artery Immunizations Immunization Administration Dates Next Due Dtap 10/08/2004 Influenza [...] Comments Blood Pressure 116/62 06/04/2018 3:24 PM [facility] Pulse 75 06/04/2018 3:24 PM [facility] Temperature 36.8 C (98.2 F) 04/21/2018 12:03 PM CDT Respiratory Rate 17 04/21/2018 12:03 PM CDT Oxygen Saturation 92% 04/21/2018 12:03 PM CDT Inhaled Oxygen Concentration - - Weight 107 kg (236 lb) 06/04/2018 3:24 PM [facility] Height 180.3 cm (5' 11) 06/04/2018 3:24 PM [facility] Body Mass Index 32.92 06/04/2018 3:24 PM [facility] Plan of Treatment Health Maintenance Due Date Last Done Comments Zoster Vaccines (1 of 2) 12/19/1987 Annual Medicare Wellness Visit 2002 RSV Immunization or 60+ Years (1 - 1-dose 75+ series) 2012 COVID-19 Vaccine ( - 2023-2 5 season) 2024 DTaP, Tdap and Td Vaccines ( 3 - Td or Tdap) 08/19/2026 08/19/2016, 10/08/2004 Pneumococcal Vaccine: 50+ Years Completed 08/09/2017, 01/27/2016, 08/20/2013 Meningococcal B [...] Insurance MEDICARE BANKERS LIFE AND CASUALTY MEDICARE BANKERS LIFE AND CASUALTY Advance Directives Documents on File Type Date Recorded 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 f or Health Care - Desirae HaydeeMaeve Advance Directives and Living Will 09/20/2016 POWER OF SKILLED NURSING FACILITIES PROFESSIONAL FO R HEALTH CARE Advance Directives and Living Will 09/20/2016 ADVANCE DIRECTIVE Advance Directives and Living Will 02/15/2016 ADVANCE DIRECTIVE Advance Directives and Living Will 02/15/2016 POWER OF SKILLED NURSING FACILITIES PROFESSIONAL FO R HEALTH CARE Advance Directives and Living Will 02/15/2016 POWER OF SKILLED NURSING FACILITIES PROFESSIONAL FO R HEALTH CARE Advance Directives and Living Will 12/27/2014 ADVANCE DIRECTIVE Advance Directives and Living Will 12/27/2014 POWER OF SKILLED NURSING FACILITIES PROFESSIONAL FO R HEALTH CARE Advance Directives and Living Will 10/20/2014 ADVANCE DIRECTIVE Advance Directives and Living Will 10/20/2014 POWER OF SKILLED NURSING FACILITIES PROFESSIONAL FO R HEALTH CARE Advance Directives and Living Will 08/06/2014 ADVANCE DIRECTIVE Advance Directives and Living Will 08/06/2014 POWER OF SKILLED NURSING FACILITIES PROFESSIONAL FO R HEALTH CARE Advance Directives and Living Will 08/20/2013 ADVANCE DIRECTIVE * Full Code (Latest Code Status on File) Date Activated Date Inactivated Comments 04/18/2018 9:08 PM 04/21/2018 5:04 PM Care Teams Inletter Relationship Specialty Start Date End Date Melva Parham MD [address] [place] [address] PCP - General INTERNAL MEDICINE 01/27/16 Jonathan Montana MD [address] [place] [address] Flora Pairer Substandard CARDIOVASCULAR DISEASE 01/27/16 Virginia Mishra NP [address] [facility] [address] [place] [address] NURSE PRACTITIONER 09/01/16
--- OUTSIDE RECORDS SUMMARY | 2025-02-17 07:34 | XMS_ITS | Encounter Summary ---
Author Organization [facility] Address [address] [place] [address] Care Team Providers Care Residential Caregiver Name Role Phone Melva Parham MD Primary Care Provider [phone] Jonathan Montana MD Unavailable [phone] Virginia Mishra NP Unavailable [phone] Encounter Details Date Type Department Care Team (Late st Contact Info) Description 10/20/2014 Abstract [facility] [address] [place] [address] Jonathan Montana MD [address] [place] [address], [address] [place] [address] Social History Tobacco Use Types [...] on filedocumented in this encounter Care Teams Residential Caregiver Relationship Specialty Start Date End Date Melva Parham MD [address] [place] [address] PCP - General INTERNAL MEDICINE 01/27/16 Jonathan Montana MD [address] [place] [address] [place] Clinical Unit Coordinator CARDIOVASCULAR DISEASE 01/27/16 Virginia Mishra NP [address] [facility] [[email or web address] [address] [place] [address] NURSE PRACTITIONER 09/01/16 documented as of this encounter
--- OUTSIDE RECORDS SUMMARY | 2025-02-17 07:34 | XMS_ITS | Encounter Summary ---
Author Organization [facility] Address [facility] [place] [address] Care Team Providers Care Customs Guard Name Role Phone Melva Parham MD Primary Care Provider [phone] Jonathan Montana MD Unavailable [phone] Virginia Mishra NP Unavailable [phone] Encounter Details Date Type Department Care Team (Late st Contact Info) Description 05/19/2018 Abstract [facility] [place] [address] [facility] , [address] [place] [address] Gonzalo Marr MD [address] [place] [address] Social History Tobacco Use Types Packs/Day Years [...] on filedocumented in this encounter Care Teams Customs Guard Relationship Specialty Start Date End Date Melva Parham MD [address] [place] [address] PCP - General INTERNAL MEDICINE 01/27/16 Jonathan Montana MD [address] [place] [address] [place] Engineer Chief CARDIOVASCULAR DISEASE 01/27/16 Virginia Mishra NP [address] [place] [address] NURSE PRACTITIONER 09/01/16 documented as of this encounter
--- OUTSIDE RECORDS SUMMARY | 2025-02-17 07:34 | XMS_ITS | Encounter Summary ---
Author Organization [facility] Address [address] [place] [address] Care Team Providers Care Field Services Manager Name Role Phone Melva Parham MD Primary Care Provider [phone] Jonathan Montana MD Unavailable [phone] Virginia Mishra NP Unavailable [phone] Encounter Details Date Type Department Care Team (Late st Contact Info) Description 11/22/2018 90 Day Stroke Follow-up Call [facility] Business Support Associate [address] [place] [address] Radha Rubio, RN Social History [...] on filedocumented in this encounter Care Teams Field Services Manager Relationship Specialty Start Date End Date Melva Parham MD [address] [place] [address] PCP - General INTERNAL MEDICINE 01/27/16 Jonathan Montana MD [address] [place] [address] [place] Junior Linux Administrator CARDIOVASCULAR DISEASE 01/27/16 Virginia Mishra NP [address] [facility] [address] [place] [address] NURSE PRACTITIONER 09/01/16 documented as of this encounter
[2025-02-17 07:46] LABS: Hematocrit 49.6 % (37.0-46.0); Hemoglobin 16.3 g/dL (12.4-15.3); Immature Granulocyte Percent A 0.5 % (0.0-0.0); Lymphocytes Absolute Auto 2.67 K/mm3 (1.10-4.50); Mean Corpuscular HGB Conc 32.9 g/dL (32-36); Mean Corpuscular Hemoglobin 32.9 pg (27.0-31.0); Mean Corpuscular Volume 100.2 fL (78.0-102.0); Nucleated Red Blood Cells Absolute Auto 0.00 K/mm3 (0.00-0.00); Nucleated Red Blood Cells Perc 0.0 % (0-0.0); Platelet Count Result 231 K/mm3 (150-420); Red Blood Count 4.95 M/mm3 (4.70-6.10); White Blood Count 10.3 K/mm3 (4.8-10.8)
[2025-02-17 07:55] LABS: Add Urine Microscopic? NO; Appearance Urine Clear (Clear); Glucose Urine UA Negative (Negative); Leukocyte Esterase Ur Negative (Negative); Nitrate Urine Negative (Negative); Specific Grav Ur 1.015 (1.010-1.020)
[2025-02-17 09:42] LABS: Alanine Aminotransferase 30 U/L (6-50); Albumin Level 4.4 g/dL (3.5-5.1); Alkaline Phosphatase 69 U/L (38-126); Anion Gap 7 mmol/L (4-12); Aspartate Amino Transferase 38 U/L (17-59); Bilirubin,Total 1.2 mg/dL (0.2-1.3); Blood Urea Nitrogen 19 mg/dL (9-20); Calcium 8.7 mg/dL (8.4-10.2); Carbon Dioxide 24 mmol/L (22-30); Chloride 110 mmol/L (98-107); Cholesterol 149 mg/dL (0-200); Creatine Kinase 720 U/L (55-170); Estimated Glomerular Filt Rate > 60; Glucose 87 mg/dL (65-110); HDL Direct 59 mg/dL; Osmolality Calculated 293 mOsm/kg (285-295); Potassium 4.8 mmol/L (3.4-5.0); Sodium 141 mmol/L (137-145); Total Protein 6.5 g/dL (6.3-8.2); Triglycerides 119 mg/dL (<150)
== END 2025-02-17 07:28 | disposition home or self-care (01) ==
PROVIDERS: PCP Internal Medicine; Visit Provider Internal Medicine
DX: E78.2 Mixed hyperlipidemia (principal); I10 Essential (primary) hypertension; R53.82 Chronic fatigue, unspecified
CPT/HCPCS: 36415; 80053; 80061; 81003; 82550; 85025

== ENCOUNTER 2025-04-18 12:54 | Outpatient (CLI) | payer MEDICARE, OTHER, SELFPAY ==
--- NOTE | ~2025-04-18 | US_ITS ---
Clinical History: B/L CAROTID STENOSIS Examination: US carotid duplex BI Comparison: 02/17/2023 Technique: Grayscale, color, duplex/spectral Doppler sonography carotid and vertebral arteries. Distal CCA and Peak ICA systolic velocities provided. Society of Radiologists in Ultrasound (SRU) consensus criteria utilized, indirectly assessing stenosis by velocities. Findings: Scattered plaque. Right side: CCA - 71 cm/sec. ICA - 287 cm/sec. ICA/CCA - 4.0 Left Side: CCA - 81 cm/sec. ICA - 91 cm/sec. ICA/CCA - 1.1 Normal antegrade flow measured bilateral vertebral arteries. IMPRESSION: 1. Greater than 70% stenosis right ICA. 2. No hemodynamically significant left ICA stenosis (i.e., if any stenosis, less than 50%). 3. Normal bilateral antegrade vertebral artery flow. Stenosis measured by Society of Radiologists in Ultrasound (SRU) criteria. Reviewed, dictated and finalized at location R. IMPRESSION: 1. Greater than 70% stenosis right ICA. 2. No hemodynamically significant left ICA stenosis (i.e., if any stenosis, le ss than 50%). 3. Normal bilateral antegrade vertebral artery flow. Stenosis measured by Society of Radiologists in Ultrasound (SRU) criteria.
== END 2025-04-18 12:55 | disposition home or self-care (01) ==
PROVIDERS: PCP Internal Medicine; Visit Provider Internal Medicine
DX: I65.23 Occlusion and stenosis of bilateral carotid arteries (principal)
CPT/HCPCS: 93880

== ENCOUNTER 2025-04-29 07:26 | Outpatient (CLI) | payer MEDICARE, OTHER, SELFPAY ==
[2025-04-29 07:54] LABS: Estimated Glomerular Filt Rate > 60
== END 2025-04-29 07:27 | disposition home or self-care (01) ==
PROVIDERS: PCP Internal Medicine; Visit Provider Internal Medicine
DX: I65.21 Occlusion and stenosis of right carotid artery (principal)
CPT/HCPCS: 99199

== ENCOUNTER 2025-04-30 08:29 | Outpatient (CLI) | payer MEDICARE, OTHER, SELFPAY ==
--- NOTE | ~2025-04-30 | CT_ITS ---
EXAMINATION: CTA neck DATE: 04/30/2025 09:16 INDICATION: Occlusion and stenosis of right carotid artery. TECHNIQUE: Computed tomographic angiography (CTA) of the neck was performed with 100 mL Omnipaque-350 intravenous contrast. Automated exposure control and iterative reconstruction technique were employed. The dose-length product was 612.38 mGy-cm. Maximum intensity projection 3D-reconstructions were created by the technologist on a separate workstation. COMPARISON: Ultrasound 04/18/2025 FINDINGS: There are no pathologically enlarged lymph nodes. There is moderate stenosis of distal left vertebral artery. There is plaque in the proximal internal carotid arteries. There is 55% stenosis of the proximal right internal carotid artery relative to normal distal artery lumen diameter (NASCET criteria). There is 0% stenosis of the proximal left internal carotid artery relative to normal distal artery lumen diameter. There is severe cervical spondylosis. IMPRESSION: 1. 55% stenosis of the proximal right internal carotid artery relative to normal distal artery lumen diameter (NASCET criteria). 2. 0% stenosis of the proximal left internal carotid artery relative to normal distal artery lumen diameter. Reviewed, dictated and finalized at location E. IMPRESSION: 1. 55% stenosis of the proximal right internal carotid artery relative to janice l distal artery lumen diameter (NASCET criteria). 2. 0% stenosis of the proximal left internal carotid artery relative to normal distal artery lumen diameter.
== END 2025-04-30 08:30 | disposition home or self-care (01) ==
PROVIDERS: PCP Internal Medicine; Visit Provider Internal Medicine
DX: I65.21 Occlusion and stenosis of right carotid artery (principal)
CPT/HCPCS: 70498; Q9967

== ENCOUNTER 2025-07-03 12:01 | Emergency (ER) | payer MEDICARE, OTHER, SELFPAY ==
[2025-07-03 12:13] VITALS: BP 127/86; PULSE 92; RESP 17; TEMP 36; O2SAT 98
[2025-07-03] MEDS: LIDOCAINE 1% LOCAL INJ 10 ML VIAL INFILTRATE (12:26)
--- NOTE | 2025-07-03 12:44 | ED.WOUNDLAC ---
HPI - Wound/Laceration General Chief Complaint: Wound/Laceration Stated Complaint: Leg injury Time Seen by Provider: 07/03/25 12:22 Source: patient and family Mode of arrival: ambulatory Limitations: no limitations History of Present Illness HPI narrative: This is a is 89 year male presents with a laceration and skin avulsion to his left lower extremity that occurred earlier today when it was injured by a board striking his left lower leg no other injuries noted has good range of motion and his leg with no numbness or tingling no loss of consciousness the patient is on Plavix for history of strokes. Currently there is minimal blood loss no numbness or tingling to his left lower extremity. Onset (ago): hour(s) Location: other Extremity Location: Left: lower leg (Deep laceration and avulsion to the skin) Place: outdoors Patient tetanus UTD: Yes Context: accidental Associated symptoms: none Related Data Home Medications ?Medication ?Instructions ?Recorded ?Confirmed ?Last Taken ?Type amlodipine 5 mg tablet 5 mg PO DAILY 03/08/22 05/16/24 Unknown History atorvastatin 40 mg tablet 40 mg PO DAILY 03/08/22 05/16/24 Unknown History clopidogrel 75 mg tablet 75 mg PO DAILY 03/08/22 05/16/24 Unknown History losartan 50 mg-hydrochlorothiazide 1 tablet PO DAILY 03/08/22 05/16/24 Unknown History 12.5 mg tablet Allergies Allergy/AdvReac Type Severity Reaction Status Date / Time Penicillins Allergy Unknown HIVES Verified 07/03/25 12:13 Iodinated Contrast Media Allergy Unknown Verified 07/03/25 12:13 Review of Systems Review of Systems: All systems reviewed & are unremarkable except as noted in HPI and below PMFSH Past Medical History Medical History CVA (cerebral vascular accident) Dyslipidemia Hypertension Social History Social History Smoking status: Former smoker Substance use: never Exam Const: General: healthy appearing Nutritional Appearance: well nourished Orientation/consciousness: patient oriented x3 Neck: Neck: normal visual inspection Chest: Chest palpation & inspection: normal inspection of the chest Resp: Effort & Inspection: normal respiratory effort Auscultation: clear to auscultation bilaterally Cardio: Rate: regular rate Rhythm: regular rhythm GI: GI Palp: Yes Soft to palpation Auscultation: normal bowel sounds Skin: Wounds: wounds noted Other: 3.5cm laceration/avulsion to his left lower extremity Neuro: General: moves all extremities Extrem: General: no pedal edema Course Course Emergency Course: Medical decision making narrative: The patient was evaluated by myself in the emergency department. History obtained from the patient was an independent historian physical exam performed and witnessed by tech. Patient had sutures that were placed in his left lower extremity approximately 5 sutures lidocaine to numb the area and up was cleansed and irrigated. Patient tolerated procedure well. Repeat assessment: Patient doing well on repeat exam with no acute distress Symptoms are stable since arrival to the emergency department Repeat vitals are stable Patient agrees with a discussion after shared medical decision-making and agrees with discharge All questions answered to the patient's satisfaction Advised follow-up within the next 7 8 days with primary for suture removal, can take Tylenol or Motrin as needed patient states he is up-to-date with his tetanus. Vital Signs Vital signs: Vital Signs Temperature 36.0 C L 07/03/25 12:13 Pulse Rate 92 07/03/25 12:13 Respiratory Rate 17 07/03/25 12:13 Blood Pressure 127/86 07/03/25 12:13 Pulse Oximetry 98 07/03/25 12:13 Oxygen Delivery Room Air 07/03/25 12:13 Temperature 36.0 C L 07/03/25 12:13 Pulse Rate 92 07/03/25 12:13 Respiratory Rate 17 07/03/25 12:13 Blood Pressure 127/86 07/03/25 12:13 Pulse Oximetry 98 07/03/25 12:13 Oxygen Delivery Room Air 07/03/25 12:13 Procedures Laceration Laceration 1: Date: 07/03/25 Time: 12:49 Site: lower extremity Side (If applicable): left Size (cm): 3.5 Description: flap and irregular Depth: simple, single layer Local Anesthetic: lidocaine 1% Amount of anesthesia used (mL): 10 Pre-repair: wound explored, irrigated and irrigated extensively ====== Skin Level ====== Skin layer closed with: vicryl Number of sutures: 5 ====== Subcutaneous Layer ====== ====== Muscle Layer ====== ====== Tendon Layer ====== MDM Differential Diagnosis Differential Diagnosis: Laceration/skin avulsion Critical Care Time Critical Care Time Critical Care Time: No Discharge Plan Discharge Clinical Impression: Laceration, Avulsion of skin Patient Disposition: Home Condition: Stable Instructions: Antibiotic Form, Laceration (ED), Skin Avulsion (ED) Additional Instructions: Advised patient to use Tylenol as needed for pain, and follow-up with primary and approximately 8 days for suture removal. Patient Language: Greenlandic Prescriptions: No Action atorvastatin 40 mg tablet 40 mg PO DAILY clopidogrel 75 mg tablet 75 mg PO DAILY losartan-hydrochlorothiazide 50-12.5 mg tablet 1 tablet PO DAILY amlodipine 5 mg Tablet 5 mg PO DAILY oxycodone-acetaminophen [Percocet] 5-325 mg tablet 1 tablet PO Q6H PRN (Reason: pain) Qty: 14 0RF Follow-up/Referrals: Melva Parham MD [Primary Care Provider, Internal Medicine] Time of Disposition: 12:50
[2025-07-03 13:00] VITALS: BP 137/78; PULSE 82; RESP 18; O2SAT 94
== END 2025-07-03 13:10 | disposition home or self-care (01) ==
LOC: CHSED 12:56
PROVIDERS: Emergency Provider Emergency Medicine; PCP Internal Medicine
DX: S81.812A Laceration without foreign body, left lower leg, initial encounter (principal); I10 Essential (primary) hypertension; E78.5 Hyperlipidemia, unspecified; Z87.891 Personal history of nicotine dependence; W45.8XXA Other foreign body or object entering through skin, initial encounter
CPT/HCPCS: 12002; 99282; J2003